=== PATIENT | male | born 1945 | race Caucasian/White ===

== ENCOUNTER 2017-01-13 11:20 | Emergency (ER) | payer OTHER ==
[2017-01-13 11:44] VITALS: PULSE 77; TEMP 97.7; BMI 35.6
--- NOTE | 2017-01-13 11:53 | PDOC ---
History of Present Illness - General Chief Complaint: Nasal Bleeding Stated Complaint: NOSE BLEED Time Seen by Provider: 01/13/17 11:35 - History of Present Illness Initial Comments: 01/13/17 11:50 71-year-old male with a past medical history of hypertension, hyperlipidemia, diabetes, nasal ALLERGIES He also has a past medical history of lymphoma, and he is in complete remission , and his last chemotherapy was 9 years ago He takes a regular aspirin daily for cardioprotection, and his last aspirin was 2 days ago Patient states that he does have forced air heat at home and is pretty dry in the house He states that on , he had some bleeding from his left nares, which resolved He started having some bleeding from his left nares again yesterday, and was seen at [facility], but was not cauterized or packed He states that 7:30 AM the bleeding started again, coming up the left nares, and some of it going down the back of his throat He states it started decreasing when he came towards the emergency department, but then as he was walking in to the emergency department it started bleeding heavily again He denies any other blood thinners, and has not taken his aspirin for 2 days He denies picking or blowing his nose, but he has been using his Flonase nasal inhaler recently He denies any recent URI He denies any other complaints at this time, and the remainder of the review of systems is negative Past History - Past Medical History Allergies/Adverse Reactions: Allergies Allergy/AdvReac Type Severity Reaction Status Date / Time Penicillins Allergy Hives Verified 01/13/17 11:38 Home Medications: Ambulatory Orders Aspirin [Aspirin EC] 325 mg PO DAILY 01/13/17 Carvedilol [Coreg -] 6.25 mg PO BID 01/13/17 Cider Vinegar [Apple Cider Vinegar] 1,000 mg PO BID 01/13/17 Clindamycin [Cleocin -] 300 mg PO TID #21 capsule 01/13/17 Fluticasone Propionate [Aller-Eliecer] 2 spr NS DAILY 01/13/17 Glyburide 10 mg PO BID 01/13/17 Lisinopril [Prinivil] 20 mg PO DAILY 01/13/17 Loratadine [Claritin -] 10 mg PO DAILY 01/13/17 Metformin HCl [Glucophage] 1,000 mg PO BID 01/13/17 Mometasone Furoate [Asmanex 220Mcg -] 1 inh IH DAILY 01/13/17 Rosuvastatin Calcium [Crestor] 10 mg PO DAILY 01/13/17 Sitagliptin Phosphate [Januvia] 50 mg PO BID 01/13/17 Anemia: No Asthma: No Cancer: Yes (hx of non hodgkins lymphoma) Cardiac Disorders: No CVA: No COPD: No CHF: No Dementia: No Diabetes: Yes (x10 yrs) GI Disorders: No Disorders: No HTN: Yes Hypercholesterolemia: Yes Liver Disease: No Seizures: No Thyroid Disease: No - Surgical History Abdominal Surgery: Yes (Right Inguinal Hernia Repair) Appendectomy: Yes Cardiac Surgery: No Cholecystectomy: No Lung Surgery: No Neurologic Surgery: No Orthopedic Surgery: Yes (Laminectomy,ORIF Right Ankle,Right Rotator Cuff Repair) - Psycho/Social/Smoking Cessation Hx Anxiety: No Suicidal Ideation: No Smoking History: Never smoked Have you smoked in the past 12 months: No Hx Alcohol Use: No Drug/Substance Use Hx: No Substance Use Type: None Hx Substance Use Treatment: No *Physical Exam - Vital Signs Last Vital Signs Temp Pulse Resp BP Pulse Ox 97.7 F 77 17 145/105 100 01/13/17 11:31 01/13/17 11:31 01/13/17 11:31 01/13/17 11:31 01/13/17 11:31 - Physical Exam Comments: 01/13/17 11:52 Physical exam Last Vital Signs Temp Pulse Resp BP Pulse Ox 97.7 F 77 17 145/105 100 01/13/17 11:31 01/13/17 11:31 01/13/17 11:31 01/13/17 11:31 01/13/17 11:31 Patient is alert and ambulatory and answering questions Head is normocephalic and atraumatic ENT- There is active epistaxis from the left nares The right naris appears benign There is a small amount of blood going down the back of the throat Mouth and oropharynx are otherwise benign Lungs clear Heart regular Medical Decision Making - Medical Decision Making 01/13/17 11:52 The nares were examined again with a nasal speculum The right nares is benign There is bleeding seen from the vicinity of the anterior septum Given this, cautery was performed with a silver nitrate stick on the anterior septum Will reevaluate 01/13/17 12:38 Patient reevaluated after cautery-bleeding completely stopped No active bleeding at this time, patient feeling much better Impression-epistaxis 01/13/17 14:34 Addendum- Patient returns with bleeding from left nares after straining at stool Anterior 4.5 cm rapid Rhino pack placed, with Neosporin, and balloon to 5 mL Will reevaluate 01/13/17 15:00 Initial packing soaked through Removed initial packing, and repacked with the second anterior 4.5 cm rapid Rhino pack with Neosporin and balloon to 5 mL 01/13/17 16:22 Patient observed, no further bleeding with left anterior rapid Rhino pack in place L nares We'll discharge with pack in place, and clindamycin Patient will need to see ENT tomorrow Patient is ALLERGIC to penicillin *DC/Admit/Observation/Transfer Diagnosis at time of Disposition: Epistaxis - Discharge Dispostion Disposition: HOME Condition at time of disposition: Improved - Prescriptions Prescriptions: Clindamycin [Cleocin -] 300 mg PO TID #21 capsule - Referrals Referrals: Jason Alba MD [Primary Care Provider] - Glenroy Dodd MD [Staff Physician] - Call tomorrow (ENT group - call tomorrow for appointment) - Patient Instructions Printed Discharge Instructions: Nosebleed, DI for Nosebleed Additional Instructions: Keep the packing in place Do not pick or blow your nose Please use your home humidifier Cold beverages only for the next 6-8 hours-nothing hot Please follow-up with ENT in the next 24-48 hours-call tomorrow morning for an appointment Followup with your primary care physician in 24-48 hours Return immediately if you worsen in any way Do not take your aspirin until seen by ENT
[2017-01-13 12:53] VITALS: BP 142/94
[2017-01-13] MEDS ORDERED: CLINDAMYCIN HCL 300 MG CAPSULE PO ONE (16:25)
[2017-01-13] MEDS ORDERED: CLINDAMYCIN HCL 150 MG CAPSULE (FP) ONE (16:31)
== END 2017-01-13 16:54 | disposition home or self-care (01) ==
LOC: FER 11:20
PROC: 2Y41X5Z Packing of Nasal Region using Packing Material (ICD-10-PCS; principal; 2017-01-13)
DX: R04.0 Epistaxis (principal); I10 Essential (primary) hypertension; E78.5 Hyperlipidemia, unspecified; E11.9 Type 2 diabetes mellitus without complications; Z79.82 Long term (current) use of aspirin; Z79.84 Long term (current) use of oral hypoglycemic drugs
CPT/HCPCS: 99282-25

== ENCOUNTER 2018-01-01 14:43 | Observation (INO) | payer OTHER ==
[2018-01-01 14:57] VITALS: BMI 36.2
[2018-01-01 15:29] LABS: BASO % 0.4 % (0-2.0); EOS % 2.5 % (0-4.5); HEMATOCRIT 49.1 % (35.4-49); HEMOGLOBIN 16.5 GM/dl (11.7-16.9); MCH 30.5 pg (25.7-33.7); MCHC 33.7 g/dl (32.0-35.9); MEAN CELL VOLUME 90.6 fl (80-96); MEAN PLT VOLUME 8.4 fl (7.5-11.1); MONO % 7.9 % (3.8-10.2); NEUT % 70.2 % (42.8-82.8); PLATELET COUNT 182 K/MM3 (134-434); RBC 5.42 M/mm3 (4.00-5.60); RDW 12.8 % (11.9-15.9); WHITE BLOOD COUNT 6.7 K/mm3 (4.0-10.8)
--- NOTE | 2018-01-01 15:46 | PDOC ---
History of Present Illness <Dhruv Shipley - Last Filed: 01/01/18 17:23> <Marcos Bowie - Last Filed: 01/04/18 18:09> - General Chief Complaint: Chest Pain Stated Complaint: CHEST PAIN SINCE LAST NIGHT Time Seen by Provider: 01/01/18 14:48 - History of Present Illness Initial Comments: 01/01/18 15:47 "The patient is a 72 year old male, accompanied by , with a significant past medical history of hypertension, hyperlipidemia, diabetes mellitus, non hodgkin's lymphoma (in remission), who presents to the emergency department with intermittent left sided non pleuritic chest pain for approx. one day. The patient reports sudden onset of mild left sided chest pain yesterday at 2pm that began while sitting at his desk and resolved on its own. The patient reports the chest pain returned a couple hours later while driving and then once again resolved on its own. The patient reports that when he woke up this morning he did not have the chest pain. However, at approx 11 am he had coffee and the left sided chest pain began so he decided to come to the ED for evaluation. The patient reports the pain as a dull ache. Denies SOB or diaphoresis. Denies radiation of pain to his back, jaw, or arm. Pt states that he is now completely pain-free. He denies any recent swelling or calf tenderness. He denies any recent fevers, chills, headache or dizziness. He denies any recent nausea, vomit, diarrhea or constipation. He denies any recent dysuria, frequency, urgency or hematuria. Allergies: Penicillins Past surgical history: Tonsils, Hernia, Appendectomy, Spinal stenosis. Family History: Paternal stroke at 55 Social History: Quit smoking 40 years ago. Primary Care Physician: Dr. Jason Alba (Marcos Bowie) Past History <Dhruv Shipley - Last Filed: 01/01/18 17:23> - Past Medical History Anemia: No Asthma: No Cancer: Yes (hx of non hodgkins lymphoma) Cardiac Disorders: No CVA: No COPD: No CHF: No Dementia: No Diabetes: Yes (x10 yrs) GI Disorders: No Disorders: No HTN: Yes Hypercholesterolemia: Yes Liver Disease: No Seizures: No Thyroid Disease: No - Surgical History Abdominal Surgery: Yes (Right Inguinal Hernia Repair) Appendectomy: Yes Cardiac Surgery: No Cholecystectomy: No Lung Surgery: No Neurologic Surgery: No Orthopedic Surgery: Yes (Laminectomy,ORIF Right Ankle,Right Rotator Cuff Repair) - Suicide/Smoking/Psychosocial Hx Smoking History: Never smoked Have you smoked in the past 12 months: No Information on smoking cessation initiated: No Hx Alcohol Use: No Drug/Substance Use Hx: No Substance Use Type: None Hx Substance Use Treatment: No <Marcos Bowie - Last Filed: 01/04/18 18:09> - Past Medical History Allergies/Adverse Reactions: Allergies Allergy/AdvReac Type Severity Reaction Status Date / Time Penicillins Allergy Mild Hives Verified 01/01/18 14:46 Home Medications: Ambulatory Orders Aspirin [Aspirin EC] 325 mg PO DAILY 01/13/17 Carvedilol [Coreg -] 6.25 mg PO BID 01/13/17 Lisinopril [Prinivil] 20 mg PO DAILY 01/13/17 Loratadine [Claritin -] 10 mg PO DAILY 01/13/17 Metformin HCl [Glucophage] 1,000 mg PO BID 01/13/17 Rosuvastatin Calcium [Crestor] 10 mg PO DAILY 01/13/17 Sitagliptin Phosphate [Januvia] 50 mg PO BID 01/13/17 Loratadine [Claritin] 1 tab PO DAILY 01/01/18 Magnesium Oxide [Mag-Oxide Magnesium] 400 mg PO BID #2 tablet 01/02/18 Cardiac Specific PMH - Complaint Specific PMHX Pacemaker: No <Marcos Bowie - Last Filed: 01/04/18 18:09> Review of Systems <Dhruv Shipley - Last Filed: 01/01/18 17:23> <Marcos Bowie - Last Filed: 01/04/18 18:09> - Review of Systems Comments:: 01/01/18 15:48 "GENERAL/CONSTITUTIONAL: No fever or chills. No weakness. HEAD, EYES, EARS, NOSE AND THROAT: No change in vision. No ear pain or discharge. No sore throat. CARDIOVASCULAR: +Chest pain. No shortness of breath. RESPIRATORY: No cough, wheezing, or hemoptysis. GASTROINTESTINAL: No nausea, vomiting, diarrhea or constipation. GENITOURINARY: No dysuria, frequency, or change in urination. MUSCULOSKELETAL: No joint or muscle swelling or pain. No neck or back pain. SKIN: No rash NEUROLOGIC: No headache, vertigo, loss of consciousness, or change in strength/ sensation. ENDOCRINE: No increased thirst. No abnormal weight change. HEMATOLOGIC/LYMPHATIC: No anemia, easy bleeding, or history of blood clots. ALLERGIC/IMMUNOLOGIC: No hives or skin allergy. " (Marcos Bowie) *Physical Exam <Dhruv Shipley - Last Filed: 01/01/18 17:23> <Marcos Bowie - Last Filed: 01/04/18 18:09> - Vital Signs Last Vital Signs Temp Pulse Resp BP Pulse Ox 97.6 F 69 18 118/78 95 01/02/18 04:44 01/02/18 04:44 01/02/18 04:44 01/02/18 04:44 01/02/18 05:49 - Physical Exam Comments: 01/01/18 15:41 "GENERAL: Awake, alert, and fully oriented, in no acute distress HEAD: No signs of trauma EYES: PERRLA, EOMI, sclera anicteric, conjunctiva clear ENT: Auricles normal inspection, hearing grossly normal, nares patent, oropharynx clear without exudates. Moist mucosa NECK: Nontender, no stepoffs, Normal ROM, supple, no lymphadenopathy, JVD, or masses LUNGS: Breath sounds equal, clear to auscultation bilaterally. No wheezes, and no crackles HEART: Regular rate and rhythm, normal S1 and S2, no murmurs, rubs or gallops ABDOMEN: Soft, nontender, normoactive bowel sounds. No guarding, no rebound. No masses EXTREMITIES: Normal range of motion, no edema. No clubbing or cyanosis. No cords, erythema, or tenderness NEUROLOGICAL: Cranial nerves II through XII intact. 5/5 strength and sensation in all extremities, Normal speech, normal gait SKIN: Warm, Dry, normal turgor, no rashes or lesions noted. " (Marcos Bowie) Heart Score/ECG Review <Dhruv Shipley - Last Filed: 01/01/18 17:23> - History History: Slightly suspicious - Electrocardiogram EKG: Normal - Age Age: >/= 65 - Risk Factors Risk Factors Heart Score: Yes Hx Hypercholesterolemia, Yes Hx Hypertension, Yes Hx Diabetes Based on the list above the patient has:: >/=3 risk factors or Hx atherosclerotic disease - Troponin Troponin: </= normal limit - Score Heart Score - Total: 4 <Ou,Marcos - Last Filed: 01/04/18 18:09> - ECG Impressions Comment:: 01/01/18 15:41 NSR, no ALEXANDER/STDs, no TWIs, Q waves in V1-V3, L axis deviation (Ou,Marcos) ED Treatment Course - LABORATORY CBC & Chemistry Diagram: 01/01/18 15:16 01/01/18 15:25 <Dhruv Shipley - Last Filed: 01/01/18 17:23> - LABORATORY CBC & Chemistry Diagram: 01/02/18 07:35 01/02/18 07:35 <Ou,Marcos - Last Filed: 01/04/18 18:09> - ADDITIONAL ORDERS Additional order review: 01/01/18 15:16 RBC 5.42 MCV 90.6 MCHC 33.7 RDW 12.8 MPV 8.4 Neutrophils % 70.2 Lymphocytes % 19.0 Monocytes % 7.9 Eosinophils % 2.5 Basophils % 0.4 - RADIOLOGY Radiology Studies Ordered: Category Date Time Status CHEST PA & LAT [RAD] Stat Radiology 01/01/18 15:16 Completed Radiograph Interpretation: 01/01/18 16:25 EXAM#: TYPE/EXAM: RESULT: [id number] RAD/CHEST PA LAT Chest pain. Chest x-ray, PA and lateral A frontal and 2 lateral views of the chest were submitted for evaluation Compared to prior CT scan of the chest dated 04/30/2015. The cardiac silhouette remains within normal limits in size with moderate unfolding of the aortic arch. There is a faint n nodular opacity in the left upper lobe measuring 11 mm. The rest of the lung is clear. Mediastinum and visualized osseous structures appear intact with moderate degenerative changes in the thoracic spine Impression Faint nodular opacity in the left upper lobe, measuring 11 mm seen on the frontal view only for which further evaluation with CT scan of the chest is recommended to evaluate for a pulmonary nodule. Reported By: Jina Middleton MD (Dhruv Shipley) - Medications Given in the ED: ED Medications Discontinued Medications Generic Name Dose Route Start Last Admin Trade Name Freq PRN Reason Stop Dose Admin Aspirin 325 mg 01/02/18 10:00 01/02/18 09:42 Ecotrin - PO 325 mg DAILY CASS Administration Carvedilol 6.25 mg 01/01/18 22:00 01/02/18 09:42 Coreg - PO 6.25 mg BID CASS Administration Insulin Aspart 1 vial 01/01/18 22:00 01/01/18 21:33 Novolog Vial Sliding Scale - SQ 6 units HS CASS Administration Protocol Insulin Aspart 1 vial 01/02/18 07:00 01/02/18 07:36 Novolog Vial Sliding Scale - SQ 4 units TIDAC CASS Administration Protocol Lisinopril 20 mg 01/02/18 10:00 01/02/18 09:42 Prinivil PO 20 mg DAILY CASS Administration Loratadine 10 mg 01/02/18 10:00 01/02/18 09:42 Claritin - PO 10 mg DAILY CASS Administration Magnesium Oxide 800 mg 01/02/18 10:14 01/02/18 12:00 Mag-Ox - PO 01/02/18 10:15 800 mg ONCE ONE Administration Sitagliptin Phosphate 50 mg 01/02/18 07:00 01/02/18 06:43 Januvia - PO 50 mg BIDAC CASS Administration Medical Decision Making <Dhruv Shipley - Last Filed: 01/01/18 17:23> <Marcos Bowie - Last Filed: 01/04/18 18:09> - Medical Decision Making 01/01/18 16:[address] call [address] for Dr. Jason Alba at 4:45 pm. Case discussed with Dr. Alba at 5:10 pm. (Dhruv Shipley) 01/01/18 15:45 72 M with intermittent atypical chest pain. EKG with no ischemic changes, making ACS unlikely. Pt with no evidence of volume overload on exam. No DVT/PE risk factors. - Labs, trop, BNP - CXR 01/01/18 18:23 Trop negative, CXR clear. Spoke with pt regarding nodule found on imaging, pt states he is aware of lung nodule. Spoke with Dr. Alba, who recommends tele obs admission. Pt admitted to hospitalist. Case discussed in detail with admitting physician including history, physical exam and ancillary studies. Admitting physician has assumed care for the patient and will follow all pending diagnostics and complete the evaluation and treatment. (Marcos Bowie) *DC/Admit/Observation/Transfer <Dhruv Shipley - Last Filed: 01/01/18 17:23> - Discharge Dispostion Admit: Yes <Marcos Bowie - Last Filed: 01/04/18 18:09> Diagnosis at time of Disposition: Chest pain - Discharge Dispostion Disposition: HOME Condition at time of disposition: Stable - Attestations Scribe Attestion: 01/01/18 15:54 Documentation prepared by Dhruv Shipley, acting as medical records clerk for Marcos Bowie MD. (Dhruv Shipley) Physician Attestion: 01/01/18 18:23 I, Dr. Marcos Bowie MD, attest that this document has been prepared under my direction and personally reviewed by me in its entirety. I further attest, that it accurately reflects all work, treatment, procedures and medical decision -making performed by me. (Marcos Bowie)
[2018-01-01 15:58] LABS: ALBUMIN 3.9 g/dl (3.5-5.0); ALK PHOS 79 U/L (32-92); ANION GAP 7 (8-16); BLOOD UREA NITROGEN 17 mg/dl (7-18); CALCIUM 9.2 mg/dl (8.4-10.2); CHLORIDE 98 mmol/L (98-107); CO2 26 mmol/L (22-28); CREATININE 0.7 mg/dl (0.6-1.3); GLUCOSE,RANDOM 296 mg/dl (74-106); POTASSIUM 3.9 mmol/L (3.5-5.1); SGOT/AST 18 U/L (10-42); SGPT/ALT 16 U/L (10-40); SODIUM 131 mmol/L (136-145); TOT PROT 6.5 g/dl (6.4-8.3)
[2018-01-01] MEDS: CARVEDILOL 6.25 MG TABLET (FP) PO SCH (21:25)
[2018-01-01] MEDS ORDERED: INSULIN SLIDING SCALE (NOVOLOG) 1 VIAL SQ SCH (22:00)
--- NOTE | 2018-01-02 00:49 | HP ---
CHIEF COMPLAINT: Chest pain PCP: Parth Cardiology: Yifan HISTORY OF PRESENT ILLNESS: This is a 72 year old male with a past medical history significant for HTN, HLD , DM who presented to the ED after multiple self resolving episodes of CP since yesterday. He states that he has had no further episodes CP in the past 10 hours and is feeling fine. He describes the pain as a dull ache with no radiation to shoulder, jaw or back. He denies associated SOB or palpitations. ER course was notable for: (1) troponin neg x 1 (2) Lasix given IVP Recent Travel: pt denies PAST MEDICAL HISTORY: HTN, HLD, DM, nonHodkins Lymphoma in remission PAST SURGICAL HISTORY: R inguinal hernia reapir lumbar laminectomy 5-6 years ago ORIF R ankle R rotator cuff repair Appendectomy tonsillectomy Social History: Smoking: Quit 1974, smoked 2ppd x 15 years Alcohol: pt denies Drugs: pt denies Family History: mother age 99, h/o CVA father age 51, [place] siblings alive and well children alive and well Allergies Penicillins Allergy (Mild, Verified 01/01/18 14:46) Hives HOME MEDICATIONS: 3 Medication Instructions Recorded Aspirin [Aspirin EC] 325 mg PO DAILY 01/13/17 Carvedilol [Coreg -] 6.25 mg PO BID 01/13/17 Lisinopril [Prinivil] 20 mg PO DAILY 01/13/17 Loratadine [Claritin -] 10 mg PO DAILY 01/13/17 Metformin HCl [Glucophage] 1,000 mg PO BID 01/13/17 Rosuvastatin Calcium [Crestor] 10 mg PO DAILY 01/13/17 Sitagliptin Phosphate [Januvia] 50 mg PO BID 01/13/17 Loratadine [Claritin] 1 tab PO DAILY 01/01/18 REVIEW OF SYSTEMS CONSTITUTIONAL: Absent: fever, chills, diaphoresis, generalized weakness, malaise, loss of appetite, weight change HEENT: Absent: rhinorrhea, nasal congestion, throat pain, throat swelling, difficulty swallowing, mouth swelling, ear pain, eye pain, visual changes CARDIOVASCULAR: present: chest pain Absent: syncope, palpitations, irregular heart rate, lightheadedness, peripheral edema RESPIRATORY: Absent: cough, shortness of breath, dyspnea with exertion, orthopnea, wheezing, stridor, hemoptysis GASTROINTESTINAL: Absent: abdominal pain, abdominal distension, nausea, vomiting, diarrhea, constipation, melena, hematochezia GENITOURINARY: Absent: dysuria, frequency, urgency, hesitancy, hematuria, flank pain, genital pain MUSCULOSKELETAL: Absent: myalgia, arthralgia, joint swelling, back pain, neck pain SKIN: Absent: rash, itching, pallor HEMATOLOGIC/IMMUNOLOGIC: Absent: easy bleeding, easy bruising, lymphadenopathy, frequent infections ENDOCRINE: Absent: unexplained weight gain, unexplained weight loss, heat intolerance, cold intolerance NEUROLOGIC: Absent: headache, focal weakness or paresthesias, dizziness, unsteady gait, seizure, mental status changes, bladder or bowel incontinence PSYCHIATRIC: Absent: anxiety, depression, suicidal or homicidal ideation, hallucinations. PHYSICAL EXAMINATION Vital Signs - 24 hr 3 01/01/18 01/01/18 01/01/18 14:45 15:54 16:24 Temperature 98.1 F Pulse Rate 81 Pulse Rate [ 77 Right Radial] Respiratory 20 20 Rate Blood Pressure 175/116 Blood Pressure 137/79 132/79 [Left Arm] O2 Sat by Pulse 100 Oximetry (%) 3 01/01/18 01/01/18 01/01/18 17:36 19:20 20:30 Temperature 97.7 F Pulse Rate 85 Pulse Rate [ 82 88 Right Radial] Respiratory 16 20 18 Rate Blood Pressure 128/82 Blood Pressure 122/84 129/81 [Left Arm] O2 Sat by Pulse 98 97 Oximetry (%) GENERAL: Awake, alert, and fully oriented, in no acute distress. HEAD: Normal with no signs of trauma. EYES: Pupils equal, round and reactive to light, extraocular movements intact, sclera anicteric, conjunctiva clear. No lid lag. EARS, NOSE, THROAT: Ears normal, nares patent, oropharynx clear without exudates. Moist mucous membranes. NECK: Normal range of motion, supple without lymphadenopathy, JVD, or masses. LUNGS: Breath sounds equal, clear to auscultation bilaterally. No wheezes. No accessory muscle use. + crackles left base HEART: Regular rate and rhythm, normal S1 and S2 without murmur, rub or gallop. ABDOMEN: Obese, Soft, nontender, not distended, normoactive bowel sounds, no guarding, no rebound, no masses. No hepatomegaly or splenomegaly. MUSCULOSKELETAL: Normal range of motion at all joints. No bony deformities or tenderness. No CVA tenderness. UPPER EXTREMITIES: 2+ pulses, warm, well-perfused. No cyanosis. No clubbing. No peripheral edema. LOWER EXTREMITIES: 2+ pulses, warm, well-perfused. No calf tenderness. No peripheral edema. NEUROLOGICAL: Cranial nerves II-XII intact. Normal speech. Normal gait. PSYCHIATRIC: Cooperative. Good eye contact. Appropriate mood and affect. SKIN: Warm, dry, normal turgor, no rashes or lesions noted, normal capillary refill. Laboratory Results - last 24 hr 3 01/01/18 01/01/18 01/01/18 01/01/18 01/01/18 15:16 15:25 15:25 19:04 21:28 WBC 6.7 RBC 5.42 Hgb 16.5 Hct 49.1 H MCV 90.6 MCH 30.5 MCHC 33.7 RDW 12.8 Plt Count 182 MPV 8.4 Neutrophils % 70.2 Lymphocytes % 19.0 Monocytes % 7.9 Eosinophils % 2.5 Basophils % 0.4 PT with INR INR PTT (Actin FS) Sodium 131 L Potassium 3.9 Chloride 98 Carbon Dioxide 26 Anion Gap 7 L BUN 17 Creatinine 0.7 Creat Clearance w eGFR > 60 POC Glucometer 365 Random Glucose 296 H Calcium 9.2 Total Bilirubin 1.0 AST 18 ALT 16 Alkaline Phosphatase 79 Creatine Kinase 65 Troponin I 0.03 0.03 B-Natriuretic Peptide 184.00 H Total Protein 6.5 Albumin 3.9 ECG Sinus rhythm with PACs vent rate 71, QTC 458 Left axis deviation no ALEXANDER/STDs, no TWIs, Q waves in V1-V3 Radiology Reports CXR PA/Lat Impression Faint nodular opacity in the left upper lobe, measuring 11 mm seen on the frontal view only for which further evaluation with CT scan of the chest is recommended to evaluate for a pulmonary nodule. Reported By: Jina Middleton MD 01/01/18 7229 ASSESSMENT/PLAN: 72yM with PMH HTN, HLD, DM, nHL presented to the ED s/p episodes CP. Chest pain - troponin neg x 2, trend x 1 more - pt has stress echo scheduled for end of Jan with his private drier and pulverizer tender - consider d/c home if trop neg for outpatient workup, would call cardiology in am Abnormal finding on CXR - ? lung nodule - outpatient CT, f/u with pulm/oncology HTN/HLD - cont home meds DM - hold glucophage while inpatient - cont januvia - BGM ac/hs with novolog sliding scale. DVT PPX - deferred as anticipated LOS <48h FEN - Tolerating po - BMP in am - low sodium diet as tolerated Dispo: Pt requires overnight observation on cardiac monitoring. Visit type - Emergency Visit Emergency Visit: Yes ED Registration Date: 01/01/18 Care time: The patient presented to the Emergency Department on the above date and was hospitalized for further evaluation of their emergent condition. - New Patient This patient is new to me today: Yes Date on this admission: 01/02/18 - Critical Care Critical Care patient: No
[2018-01-02 05:50] VITALS: BP 118/78; PULSE 69; TEMP 97.6
[2018-01-02] MEDS ORDERED: INSULIN SLIDING SCALE (NOVOLOG) 1 VIAL SQ SCH (07:00)
[2018-01-02] MEDS ORDERED: sitaGLIPtin PHOSPHATE 50 MG TABLET PO SCH (07:00)
[2018-01-02 08:40] LABS: ANION GAP 9 (8-16); BLOOD UREA NITROGEN 17 mg/dl (7-18); CALCIUM 8.9 mg/dl (8.4-10.2); CHLORIDE 96 mmol/L (98-107); CO2 28 mmol/L (22-28); CREATININE 0.9 mg/dl (0.6-1.3); MAGNESIUM 1.7 mg/dL (1.8-2.4); PHOSPHOROUS 3.5 mg/dl (2.5-4.6); SODIUM 133 mmol/L (136-145)
[2018-01-02 09:12] LABS: GLUCOSE,RANDOM 306 mg/dl (74-106)
[2018-01-02 09:22] LABS: BASO % 0.3 % (0-2.0); EOS % 2.6 % (0-4.5); HEMATOCRIT 50.8 % (35.4-49); LYMPH % 21.7 % (8-40); MCH 30.5 pg (25.7-33.7); MCHC 33.5 g/dl (32.0-35.9); MEAN PLT VOLUME 8.9 fl (7.5-11.1); MONO % 7.6 % (3.8-10.2); NEUT % 67.8 % (42.8-82.8); PLATELET COUNT 186 K/MM3 (134-434); RBC 5.58 M/mm3 (4.00-5.60); RDW 13.1 % (11.9-15.9); WHITE BLOOD COUNT 6.3 K/mm3 (4.0-10.8)
[2018-01-02] MEDS: CARVEDILOL 6.25 MG TABLET (FP) PO SCH (09:42)
[2018-01-02] MEDS ORDERED: ASPIRIN 325 MG ENTERIC COATED TABLET (FP) PO SCH (10:00)
[2018-01-02] MEDS ORDERED: LISINOPRIL 20 MG TABLET (FP) PO SCH (10:00)
[2018-01-02] MEDS ORDERED: LORATADINE 10 MG TABLET PO SCH (10:00)
[2018-01-02] MEDS ORDERED: MAGNESIUM OXIDE 400 MG TABLET (FP) PO ONE (10:14)
--- NOTE | 2018-01-02 11:00 | PN ---
Physical Exam: SUBJECTIVE: Patient seen and examined OBJECTIVE: Vital Signs Period Temp Pulse Resp BP Sys/Hernandez Pulse Ox Last 24 Hr 97.6 F-98.1 F 69-88 16-20 118-175/78-116 95-100 GENERAL: The patient is awake, alert, and fully oriented, in no acute distress. HEAD: Normal with no signs of trauma. EYES: PERRL, extraocular movements intact, sclera anicteric, conjunctiva clear. No ptosis. ENT: Ears normal, nares patent, oropharynx clear without exudates, moist mucous membranes. NECK: Trachea midline, full range of motion, supple. LUNGS: Breath sounds equal, clear to auscultation bilaterally, no wheezes, no crackles, no accessory muscle use. HEART: Regular rate and rhythm, S1, S2 without murmur, rub or gallop. ABDOMEN: Soft, nontender, nondistended, normoactive bowel sounds, no guarding, no rebound, no hepatosplenomegaly, no masses. EXTREMITIES: 2+ pulses, warm, well-perfused, no edema. NEUROLOGICAL: Cranial nerves II through XII grossly intact. Normal speech, gait not observed. PSYCH: Normal mood, normal affect. SKIN: Warm, dry, normal turgor, no rashes or lesions noted Laboratory Results - last 24 hr 01/01/18 01/01/18 01/01/18 15:16 15:25 15:25 WBC 6.7 RBC 5.42 Hgb 16.5 Hct 49.1 H MCV 90.6 MCH 30.5 MCHC 33.7 RDW 12.8 Plt Count 182 MPV 8.4 Neutrophils % 70.2 Lymphocytes % 19.0 Monocytes % 7.9 Eosinophils % 2.5 Basophils % 0.4 PT with INR INR PTT (Actin FS) Sodium 131 L Potassium 3.9 Chloride 98 Carbon Dioxide 26 Anion Gap 7 L BUN 17 Creatinine 0.7 Creat Clearance w eGFR > 60 POC Glucometer Random Glucose 296 H Calcium 9.2 Phosphorus Magnesium Total Bilirubin 1.0 AST 18 ALT 16 Alkaline Phosphatase 79 Creatine Kinase 65 Troponin I 0.03 B-Natriuretic Peptide Total Protein 6.5 Albumin 3.9 01/01/18 01/01/18 01/01/18 15:25 15:26 19:04 WBC RBC Hgb Hct MCV MCH MCHC RDW Plt Count MPV Neutrophils % Lymphocytes % Monocytes % Eosinophils % Basophils % PT with INR Cancelled INR Cancelled PTT (Actin FS) Cancelled Sodium Potassium Chloride Carbon Dioxide Anion Gap BUN Creatinine Creat Clearance w eGFR POC Glucometer Random Glucose Calcium Phosphorus Magnesium Total Bilirubin AST ALT Alkaline Phosphatase Creatine Kinase Troponin I 0.03 B-Natriuretic Peptide 184.00 H Total Protein Albumin 01/01/18 01/02/18 01/02/18 21:28 01:20 06:36 WBC RBC Hgb Hct MCV MCH MCHC RDW Plt Count MPV Neutrophils % Lymphocytes % Monocytes % Eosinophils % Basophils % PT with INR INR PTT (Actin FS) Sodium Potassium Chloride Carbon Dioxide Anion Gap BUN Creatinine Creat Clearance w eGFR POC Glucometer 365 297 Random Glucose Calcium Phosphorus Magnesium Total Bilirubin AST ALT Alkaline Phosphatase Creatine Kinase 45 Troponin I 0.03 B-Natriuretic Peptide Total Protein Albumin 01/02/18 01/02/18 07:35 07:35 WBC 6.3 RBC 5.58 Hgb 17.0 H Hct 50.8 H MCV 91.0 MCH 30.5 MCHC 33.5 RDW 13.1 Plt Count 186 MPV 8.9 Neutrophils % 67.8 Lymphocytes % 21.7 Monocytes % 7.6 Eosinophils % 2.6 Basophils % 0.3 PT with INR INR PTT (Actin FS) Sodium 133 L Potassium 4.0 Chloride 96 L Carbon Dioxide 28 Anion Gap 9 BUN 17 Creatinine 0.9 D Creat Clearance w eGFR POC Glucometer Random Glucose 306 H* Calcium 8.9 Phosphorus 3.5 Magnesium 1.7 L Total Bilirubin AST ALT Alkaline Phosphatase Creatine Kinase Troponin I B-Natriuretic Peptide Total Protein Albumin Active Medications Generic Name Dose Route Start Last Admin Trade Name Freq PRN Reason Stop Dose Admin Aspirin 325 mg 01/02/18 10:00 01/02/18 09:42 Ecotrin - PO 325 mg DAILY CASS Administration Carvedilol 6.25 mg 01/01/18 22:00 01/02/18 09:42 Coreg - PO 6.25 mg BID CASS Administration Insulin Aspart 1 vial 01/01/18 22:00 01/01/18 21:33 Novolog Vial Sliding Scale - SQ 6 units HS CASS Administration Protocol Insulin Aspart 1 vial 01/02/18 07:00 01/02/18 07:36 Novolog Vial Sliding Scale - SQ 4 units TIDAC CASS Administration Protocol Lisinopril 20 mg 01/02/18 10:00 02/01/18 09:42 Prinivil PO 20 mg DAILY CASS Administration Loratadine 10 mg 01/02/18 10:00 01/02/18 09:42 Claritin - PO 10 mg DAILY CASS Administration Rosuvastatin Calcium 10 mg 01/02/18 22:00 Crestor - PO HS CASS Sitagliptin Phosphate 50 mg 01/02/18 07:00 01/02/18 06:43 Januvia - PO 50 mg BIDAC CASS Administration ASSESSMENT/PLAN:
--- NOTE | 2018-01-02 11:00 | DS ---
Physical Exam: SUBJECTIVE: Patient seen and examined OBJECTIVE: Vital Signs Period Temp Pulse Resp BP Sys/Hernandez Pulse Ox Last 24 Hr 97.6 F-98.1 F 69-88 16-20 118-175/78-116 95-100 PHYSICAL EXAM GENERAL: The patient is awake, alert, and fully oriented, in no acute distress. HEAD: Normal with no signs of trauma. EYES: PERRL, extraocular movements intact, sclera anicteric, conjunctiva clear. ENT: Ears normal, nares patent, oropharynx clear without exudates, moist mucous membranes. NECK: Trachea midline, full range of motion, supple. LUNGS: Breath sounds equal, clear to auscultation bilaterally, no wheezes, no crackles, no accessory muscle use. HEART: Regular rate and rhythm, S1, S2 without murmur, rub or gallop. ABDOMEN: Soft, nontender, nondistended, normoactive bowel sounds, no guarding, no rebound, no hepatosplenomegaly, no masses. EXTREMITIES: 2+ pulses, warm, well-perfused, no edema. NEUROLOGICAL: Cranial nerves II through XII grossly intact. Normal speech, gait not observed. PSYCH: Normal mood, normal affect. SKIN: Warm, dry, normal turgor, no rashes or lesions noted. LABS Laboratory Results - last 24 hr 01/01/18 01/01/18 01/01/18 15:16 15:25 15:25 WBC 6.7 RBC 5.42 Hgb 16.5 Hct 49.1 H MCV 90.6 MCH 30.5 MCHC 33.7 RDW 12.8 Plt Count 182 MPV 8.4 Neutrophils % 70.2 Lymphocytes % 19.0 Monocytes % 7.9 Eosinophils % 2.5 Basophils % 0.4 PT with INR INR PTT (Actin FS) Sodium 131 L Potassium 3.9 Chloride 98 Carbon Dioxide 26 Anion Gap 7 L BUN 17 Creatinine 0.7 Creat Clearance w eGFR > 60 POC Glucometer Random Glucose 296 H Calcium 9.2 Phosphorus Magnesium Total Bilirubin 1.0 AST 18 ALT 16 Alkaline Phosphatase 79 Creatine Kinase 65 Troponin I 0.03 B-Natriuretic Peptide Total Protein 6.5 Albumin 3.9 01/01/18 01/01/18 01/01/18 15:25 15:26 19:04 WBC RBC Hgb Hct MCV MCH MCHC RDW Plt Count MPV Neutrophils % Lymphocytes % Monocytes % Eosinophils % Basophils % PT with INR Cancelled INR Cancelled PTT (Actin FS) Cancelled Sodium Potassium Chloride Carbon Dioxide Anion Gap BUN Creatinine Creat Clearance w eGFR POC Glucometer Random Glucose Calcium Phosphorus Magnesium Total Bilirubin AST ALT Alkaline Phosphatase Creatine Kinase Troponin I 0.03 B-Natriuretic Peptide 184.00 H Total Protein Albumin 01/01/18 01/02/18 01/02/18 21:28 01:20 06:36 WBC RBC Hgb Hct MCV MCH MCHC RDW Plt Count MPV Neutrophils % Lymphocytes % Monocytes % Eosinophils % Basophils % PT with INR INR PTT (Actin FS) Sodium Potassium Chloride Carbon Dioxide Anion Gap BUN Creatinine Creat Clearance w eGFR POC Glucometer 365 297 Random Glucose Calcium Phosphorus Magnesium Total Bilirubin AST ALT Alkaline Phosphatase Creatine Kinase 45 Troponin I 0.03 B-Natriuretic Peptide Total Protein Albumin 01/02/18 01/02/18 07:35 07:35 WBC 6.3 RBC 5.58 Hgb 17.0 H Hct 50.8 H MCV 91.0 MCH 30.5 MCHC 33.5 RDW 13.1 Plt Count 186 MPV 8.9 Neutrophils % 67.8 Lymphocytes % 21.7 Monocytes % 7.6 Eosinophils % 2.6 Basophils % 0.3 PT with INR INR PTT (Actin FS) Sodium 133 L Potassium 4.0 Chloride 96 L Carbon Dioxide 28 Anion Gap 9 BUN 17 Creatinine 0.9 D Creat Clearance w eGFR POC Glucometer Random Glucose 306 H* Calcium 8.9 Phosphorus 3.5 Magnesium 1.7 L Total Bilirubin AST ALT Alkaline Phosphatase Creatine Kinase Troponin I B-Natriuretic Peptide Total Protein Albumin HOSPITAL COURSE: Date of Admission:01/01/18 Date of Discharge: 01/02/18 Minutes to complete discharge: 37 Discharge Summary Reason For Visit: CHEST PAIN Current Active Problems Chest pain (Acute) Hospital Course: Initial Hospital Course: This 72 year old male with a past medical history significant for HTN, HLD, DM, non hodgkin's lymphoma (in remission) presented to the ED after 3 episodes of self resolving episodes of CP x1.5 days, pleuretic/pressure in nature. Since presenting to the ED he had no further episodes CP and feels well, he is unsure why or where it came from. He described the pain as a pressure, dull ache with no radiation to shoulder, jaw or back. He denied associated SOB or palpitations. Subsequent Hospital Course/Progress Note/DC summary: 1. Atypical CP - No further events since admission, non reproducible, no sob, palpitations - Trops x2 negative - Telemetry monitoring shows SN with PAC's and PVCs x2, already on coreg - ECHO - Spoke with cardiology office Dr. Saah he is aware of episode and will reschedule pt for echo stress sometime next week, pt is aware 2. Hypomagnesemia - Replete mg ox 800mg x1 now - Home with po 400mg BID x 2 days - PCP follow up Dispo: - home with above plan, pt aware and agrees - [phone] Condition: Stable - Instructions Diet, Activity, Other Instructions: Please return to the ED for any new, persistent, or worsening symptoms. Follow up with your PCP in 1 week Resume home medications as directed Follow up with [employer] Dr. Saha office next week, they will call you for moving ECHO/stress appt. Disposition: HOME - Home Medications Comprehensive Discharge Medication List: Ambulatory Orders Aspirin [Aspirin EC] 325 mg PO DAILY 01/13/17 Carvedilol [Coreg -] 6.25 mg PO BID 01/13/17 Lisinopril [Prinivil] 20 mg PO DAILY 01/13/17 Loratadine [Claritin -] 10 mg PO DAILY 01/13/17 Metformin HCl [Glucophage] 1,000 mg PO BID 01/13/17 Rosuvastatin Calcium [Crestor] 10 mg PO DAILY 01/13/17 Sitagliptin Phosphate [Januvia] 50 mg PO BID 01/13/17 Loratadine [Claritin] 1 tab PO DAILY 01/01/18 Magnesium Oxide [Mag-Oxide Magnesium] 400 mg PO BID #2 tablet 01/02/18
--- NOTE | 2018-01-02 15:00 | EKG ---
Test Reason : Blood Pressure : / mmHG Vent. Rate : 071 BPM Atrial Rate : 071 BPM P-R Int : 200 ms QRS Dur : 086 ms QT Int : 422 ms P-R-T Axes : 064 -63 -03 degrees QTc Int : 458 ms POOR DATA QUALITY, INTERPRETATION MAY BE ADVERSELY AFFECTED SINUS RHYTHM WITH PREMATURE ATRIAL COMPLEXES WITH ABERRANT CONDUCTION LEFT AXIS DEVIATION CANNOT RULE OUT SEPTAL INFARCT , AGE UNDETERMINED INFERIOR INFARCT , AGE UNDETERMINED ABNORMAL ECG NO PREVIOUS ECGS AVAILABLE Confirmed by LAQUITA RAMSEY MD ([id number] on 01/02/2018 3:00:42 PM Referred By: DAVID IQBAL Confirmed By:LAQUITA RAMSEY MD
[2018-01-02] MEDS ORDERED: ROSUVASTATIN CA 10 MG TABLET (FP) PO SCH (22:00)
== END 2018-01-02 13:11 | disposition home or self-care (01) ==
LOC: FER 14:43 → FM/S 18:33
PROVIDERS: ADMIT Internal Medicine; ATTEND Nurse Practitioner Acute Care
PROC: 3E013VG Introduction of Insulin into Subcutaneous Tissue, Percutaneous Approach (ICD-10-PCS; principal; 2018-01-01)
DX: R07.9 Chest pain, unspecified (principal); I10 Essential (primary) hypertension; E78.5 Hyperlipidemia, unspecified; E11.9 Type 2 diabetes mellitus without complications; E83.42 Hypomagnesemia; C85.90 Non-Hodgkin lymphoma, unspecified, unspecified site; R91.8 Other nonspecific abnormal finding of lung field; Z88.0 Allergy status to penicillin; Z79.82 Long term (current) use of aspirin; Z79.84 Long term (current) use of oral hypoglycemic drugs
CPT/HCPCS: 36415; 71046-TC-FY; 80048; 80053; 82550; 82962; 83735; 83880; 84100; 84484; 85025; 93005; 93306-TC; 96372; 99285-25; G0378

== ENCOUNTER 2018-02-13 21:01 | Inpatient (IN) | payer OTHER ==
[2018-02-13 21:06] VITALS: BMI 35.9
--- NOTE | 2018-02-13 21:31 | PDOC ---
History of Present Illness - General History Source: Patient Exam Limitations: No Limitations - History of Present Illness Initial Comments: 02/13/18 21:42 The patient is a 72 year old male with past medical history of hypertension, hyperlipidemia, and DM who presents to the ED with complaints of left hand weakness since 7:15 pm today. Patient reports he got home from work at 6 pm and took a nap. Upon waking up and eating dinner he noticed he was having difficulty holding his fork. At this time he noticed change in the way he was talking and chewing. He denies any associated numbness or tingling, denies any weakness in the rest of his LUE or other extremities. Denies any headache, LOC, changes in vision, any other focal neurological paresthesias. Denies any fevers or chills. PAST MEDICAL HISTORY: no significant history PAST SURGICAL HISTORY: no significant history FAMILY HISTORY: no pertinent history SOCIAL HISTORY: Pt lives with family and is employed. MEDICATIONS: reviewed ALLERGIES: As per nursing notes ROS General: No fevers or chills, no weakness, no weight loss HEENT: No change in vision. No sore throat,. No ear pain CardioVascular: No chest pain or shortness of breath Respiratory:No cough, or wheezing. Gastrointestinal: no nausea, vomiting, diarrhea or constipation, No rectal bleeding Genitourinary: No dysuria, hematuria, or frequency Musculoskeletal: No joint or muscle pain or swelling Neurologic: Weakness in left hand No headache, vertigo, dizziness or loss of consciousness Psychiatric: nor depression Skin: No rashes or easy bruising Endocrine: no increased thirst or abnormal weight change Allergic: no skin or latex allergy All other systems reviewed and normal General: Well-nourished well-developed individual, no acute distress HEENT: Throat: Normal, tonsils normal, no erythema or exudate Neck: Supple, no meningeal signs, no lymphadenopathy Eyes::Pupils equal reactive and round, extraocular motion intact Chest: Nontender to palpation Cardiac: II/ systolic ejection murmur. S1-S2 normal, regular rate and rhythm, no rubs or gallops Respiratory: Lungs clear to auscultation bilateral Abdomen: Soft, nondistended, normal bowel sounds, nontender to palpation diffusely Extremities: Warm, dry, no cyanosis, clubbing, or edema Skin: No rashes Neuro: See NIHSS. Measurable decreased in event promoter strength L vs R. Alert and oriented x3, nonfocal exam, grossly intact, normal gait Psych: Normal mood and affect <Nighat Pastrana - Last Filed: 02/13/18 21:42> - General History Source: Patient Exam Limitations: No Limitations - History of Present Illness Initial Comments: A portion of this note was documented by scribe services under my direction. I have reviewed the details of the note, within reason, and agree with the documentation. The case summary and management plan written by me. Medical decision making this is a 72-year-old male with history of risk factors for CVA. Patient comes in with 2 hours of isolated left hand weakness. Patient' s event promoter is weak however extension of his fingers appears to be fine. Otherwise there is no measurable neurological deficits. Patient's NIH stroke scale is 0. Will obtain workup including CBC, comp, EKG, chest x-ray, head CT Well reassessed and follow-up on workup Reassessment 2200 Patient's symptoms remain unchanged. There is been no decrease or increase in the left hand weakness. 02/13/18 22:57 Patient has been accepted for observation status by the hospitalist service. . Signout given to the admitting hospitalist, who accepts the patient. Discussed plan with the patient family at bedside, Patient and family aware of the plan and agree. Patient is clinically unchanged and stable. Timing/Duration: changing over time <Cong Cunningham I - Last Filed: 02/13/18 22:58> - General Chief Complaint: Weakness Stated Complaint: LT HAND WEAKNESS Time Seen by Provider: 02/13/18 21:07 Past History <Nighat Pastrana - Last Filed: 02/13/18 21:42> - Past Medical History Anemia: No Asthma: No Cancer: Yes (hx of non hodgkins lymphoma) Cardiac Disorders: No CVA: No COPD: No CHF: No Dementia: No Diabetes: Yes GI Disorders: No Disorders: No HTN: Yes Hypercholesterolemia: Yes Liver Disease: No Seizures: No Thyroid Disease: No - Surgical History Abdominal Surgery: Yes (Right Inguinal Hernia Repair) Appendectomy: Yes Cardiac Surgery: No Cholecystectomy: No Lung Surgery: No Neurologic Surgery: No Orthopedic Surgery: Yes (Laminectomy,ORIF Right Ankle,Right Rotator Cuff Repair) - Suicide/Smoking/Psychosocial Hx Smoking History: Never smoked Have you smoked in the past 12 months: No Hx Alcohol Use: No Drug/Substance Use Hx: No Substance Use Type: None Hx Substance Use Treatment: No <Cong Cunningham I - Last Filed: 02/13/18 22:58> - Past Medical History Allergies/Adverse Reactions: Allergies Allergy/AdvReac Type Severity Reaction Status Date / Time Penicillins Allergy Mild Hives Verified 01/01/18 14:46 Home Medications: Ambulatory Orders Aspirin [Aspirin EC] 325 mg PO DAILY 01/13/17 Carvedilol [Coreg -] 6.25 mg PO BID 01/13/17 Lisinopril [Prinivil] 20 mg PO DAILY 01/13/17 Metformin HCl [Glucophage] 1,000 mg PO BID 01/13/17 Rosuvastatin Calcium [Crestor] 10 mg PO DAILY 01/13/17 Sitagliptin Phosphate [Januvia] 100 mg PO DAILY 01/13/17 Loratadine [Claritin] 1 tab PO DAILY 01/01/18 Glucosam/Chondroit/C/Manganese [Cosamin Ds Capsule] 1 each PO BID 02/13/18 Magnesium Oxide [Mag-Oxide Magnesium] 400 mg PO Q2D 02/13/18 Multivit-Min/FA/Lycopen/Lutein [Centrum Silver Tablet] 1 each PO DAILY 02/13/18 *Physical Exam - Vital Signs Last Vital Signs Temp Pulse Resp BP Pulse Ox 98.2 F 89 18 152/91 98 02/13/18 21:02 02/13/18 21:02 02/13/18 21:02 02/13/18 21:31 02/13/18 21:02 <Nighat Pastrana - Last Filed: 02/13/18 21:42> - Vital Signs Last Vital Signs Temp Pulse Resp BP Pulse Ox 98.2 F 89 18 159/107 98 02/13/18 21:02 02/13/18 21:02 02/13/18 21:02 02/13/18 21:02 02/13/18 21:02 <Cong Cunningham I - Last Filed: 02/13/18 22:58> ED Treatment Course - LABORATORY CBC & Chemistry Diagram: 02/13/18 21:50 02/13/18 21:50 <Cong Cunningham I - Last Filed: 02/13/18 22:58> *DC/Admit/Observation/Transfer - Attestations Scribe Attestion: 02/13/18 21:44 Documentation prepared by Nighat Pastrana, acting as medical corps officer for Cong Cunningham MD. <Nighat Pastrana - Last Filed: 02/13/18 21:42> - Discharge Dispostion Admit: Yes <Cong Cunningham I - Last Filed: 02/13/18 22:58> Diagnosis at time of Disposition: Weakness of left hand - Discharge Dispostion Condition at time of disposition: Stable - Referrals Referrals: Jason Alba MD [Primary Care Provider] - - Patient Instructions - Post Discharge Activity
--- NOTE | 2018-02-13 21:40 | PDOC ---
NIH Stroke Scale - Last Known Well Date/Time & Onset Date Last Known Well: 02/13/18 Time Last Known Well: 19:00 - Initial Evaluation Level of consciousness: Alert Ask patient the month and their age: Answers both correctly Ask patient to open & close eyes; make fist and let go: Obeys both correctly Best gaze (horizontal eye movement): Normal Visual field testing: No visual field loss Facial paresis (Show teeth/raise eyebrows/close eyes tight): Normal symmetrical movement Motor Function: Left Arm: Normal Motor Function: Right Arm: Normal (extends arm 90 (or 45) degrees for 10 seconds without drift Motor Function: Left Leg: Normal (extends leg 30 degrees for 5 seconds without drift) Motor Function: Right Leg: Normal (extends leg 30 degrees for 5 seconds without drift) Limb Ataxia: No ataxia Sensory(Use pinprick test arms,legs,trunk,face/side to side): Normal Best language (Describe picture, name items, read sentences): No Aphasia Dysarthria (read several words): Normal articulation Extinction and Inattention: No abnormality - Total Score NIH Stroke Scale Score: 0
[2018-02-13 22:05] LABS: BASO % 0.8 % (0-2.0); EOS % 3.6 % (0-4.5); HEMATOCRIT 47.7 % (35.4-49); HEMOGLOBIN 16.5 GM/dl (11.7-16.9); LYMPH % 20.3 % (8-40); MCH 30.4 pg (25.7-33.7); MCHC 34.5 g/dl (32.0-35.9); MEAN CELL VOLUME 88.3 fl (80-96); MEAN PLT VOLUME 8.1 fl (7.5-11.1); MONO % 7.9 % (3.8-10.2); NEUT % 67.4 % (42.8-82.8); PLATELET COUNT 210 K/MM3 (134-434); RBC 5.41 M/mm3 (4.00-5.60); RDW 12.6 % (11.9-15.9); WHITE BLOOD COUNT 6.4 K/mm3 (4.0-10.8)
[2018-02-13 22:22] LABS: ALBUMIN 3.9 g/dl (3.5-5.0); ALK PHOS 90 U/L (32-92); ANION GAP 11 (8-16); BILIRUBIN,TOTAL 1.1 mg/dl (0.2-1.0); BLOOD UREA NITROGEN 18 mg/dl (7-18); CALCIUM 9.4 mg/dl (8.4-10.2); CHLORIDE 99 mmol/L (98-107); CO2 23 mmol/L (22-28); CREATININE 1.1 mg/dl (0.6-1.3); SGOT/AST 24 U/L (10-42); SGPT/ALT 15 U/L (10-40); SODIUM 133 mmol/L (136-145); TOT PROT 6.7 g/dl (6.4-8.3)
[2018-02-13 22:26] LABS: GLUCOSE,RANDOM 426 mg/dl (74-106)
[2018-02-13] MEDS ORDERED: INSULIN REGULAR HUMAN 100 UNITS/ML *VIAL SQ ONE (22:30)
[2018-02-13] MEDS ORDERED: INSULIN REGULAR HUMAN 100 UNITS/ML *VIAL ONE (22:41)
[2018-02-13] MEDS ORDERED: HEMOQUE TEST 1 EACH EACH ONE (23:46)
[2018-02-14] MEDS ORDERED: ASPIRIN 325 MG TABLET PO ONE (02:07)
--- NOTE | 2018-02-14 02:15 | HP ---
CHIEF COMPLAINT: left hand weakness PCP: Rubens Alba HISTORY OF PRESENT ILLNESS: This is a 72 year old male with a significant past medical history of HTN, HLD, DM who presented to the ED after noticing weakness to his left hand while eating. He also felt as if his speech and chewing was off. His left perioral area feels "funny" to him. ER course was notable for: (1) CT head no acute changes (2) sodium 133, glucose 426 Recent Travel: pt denies PAST MEDICAL HISTORY: HTN, HLD, DM, nonHodgkin's lymphoma, psoriasis PAST SURGICAL HISTORY: R inguinal hernia reapir lumbar laminectomy 5-6 years ago ORIF R ankle R rotator cuff repair Appendectomy tonsillectomy Social History: Smoking: Quit 1974, smoked 2ppd x 15 years Alcohol: pt denies Drugs: pt denies Family History: mother age 99, h/o CVA father age 51, [place] sister alive and well children alive and well Allergies Penicillins Allergy (Mild, Verified 01/01/18 14:46) Hives HOME MEDICATIONS: 3 Medication Instructions Recorded Aspirin [Aspirin EC] 325 mg PO DAILY 01/13/17 Carvedilol [Coreg -] 6.25 mg PO BID 01/13/17 Lisinopril [Prinivil] 20 mg PO DAILY 01/13/17 Metformin HCl [Glucophage] 1,000 mg PO BID 01/13/17 Rosuvastatin Calcium [Crestor] 10 mg PO DAILY 01/13/17 Sitagliptin Phosphate [Januvia] 100 mg PO DAILY 01/13/17 Loratadine [Claritin] 1 tab PO DAILY 01/01/18 Glucosam/Chondroit/C/Manganese 1 each PO BID 02/13/18 [Cosamin Ds Capsule] Magnesium Oxide [Mag-Oxide 400 mg PO Q2D 02/13/18 Magnesium] Multivit-Min/FA/Lycopen/Lutein 1 each PO DAILY 02/13/18 [Centrum Silver Tablet] REVIEW OF SYSTEMS CONSTITUTIONAL: Absent: fever, chills, diaphoresis, generalized weakness, malaise, loss of appetite, weight change HEENT: Absent: rhinorrhea, nasal congestion, throat pain, throat swelling, difficulty swallowing, mouth swelling, ear pain, eye pain, visual changes CARDIOVASCULAR: Absent: chest pain, syncope, palpitations, irregular heart rate, lightheadedness , peripheral edema RESPIRATORY: Absent: cough, shortness of breath, dyspnea with exertion, orthopnea, wheezing, stridor, hemoptysis GASTROINTESTINAL: Absent: abdominal pain, abdominal distension, nausea, vomiting, diarrhea, constipation, melena, hematochezia GENITOURINARY: Absent: dysuria, frequency, urgency, hesitancy, hematuria, flank pain, genital pain MUSCULOSKELETAL: Absent: myalgia, arthralgia, joint swelling, back pain, neck pain SKIN: Absent: rash, itching, pallor HEMATOLOGIC/IMMUNOLOGIC: Absent: easy bleeding, easy bruising, lymphadenopathy, frequent infections ENDOCRINE: Absent: unexplained weight gain, unexplained weight loss, heat intolerance, cold intolerance NEUROLOGIC: Present: focal weakness or paresthesias Absent: headache, dizziness, unsteady gait, seizure, mental status changes, bladder or bowel incontinence PSYCHIATRIC: Absent: anxiety, depression, suicidal or homicidal ideation, hallucinations. PHYSICAL EXAMINATION Vital Signs - 24 hr 3 02/13/18 02/13/18 02/14/18 21:02 21:31 01:00 Temperature 98.2 F 98.0 F Pulse Rate 89 85 Respiratory 18 17 Rate Blood Pressure 159/107 124/73 Blood Pressure 152/91 [Arm] O2 Sat by Pulse 98 96 Oximetry (%) GENERAL: Awake, alert, and fully oriented, in no acute distress. HEAD: Normal with no signs of trauma. EYES: Pupils equal, round and reactive to light, extraocular movements intact, sclera anicteric, conjunctiva clear. No lid lag. EARS, NOSE, THROAT: Ears normal, nares patent, oropharynx clear without exudates. Moist mucous membranes. very mild right facial droop noted NECK: Normal range of motion, supple without lymphadenopathy, JVD, or masses. LUNGS: Breath sounds equal, clear to auscultation bilaterally. No wheezes, and no crackles. No accessory muscle use. HEART: Regular rate and rhythm, normal S1 and S2 without murmur, rub or gallop. ABDOMEN: Soft, nontender, not distended, normoactive bowel sounds, no guarding, no rebound, no masses. No hepatomegaly or splenomegaly. MUSCULOSKELETAL: Normal range of motion at all joints. No bony deformities or tenderness. No CVA tenderness. UPPER EXTREMITIES: 2+ pulses, warm, well-perfused. No cyanosis. No clubbing. No peripheral edema. 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 LOWER EXTREMITIES: 2+ pulses, warm, well-perfused. No calf tenderness. No peripheral edema. muscle strength equal on both sides NEUROLOGICAL: Cranial nerves II-XII intact. Normal speech. Normal gait. PSYCHIATRIC: Cooperative. Good eye contact. Appropriate mood and affect. SKIN: Warm, dry, normal turgor, no rashes or lesions noted, normal capillary refill. Laboratory Results - last 24 hr 3 02/13/18 02/13/18 02/13/18 21:50 21:50 21:50 WBC 6.4 RBC 5.41 Hgb 16.5 Hct 47.7 MCV 88.3 MCH 30.4 MCHC 34.5 RDW 12.6 Plt Count 210 MPV 8.1 Neutrophils % 67.4 Lymphocytes % 20.3 Monocytes % 7.9 Eosinophils % 3.6 Basophils % 0.8 Sodium Potassium Chloride Carbon Dioxide Anion Gap BUN Creatinine Creat Clearance w eGFR POC Glucometer Random Glucose Calcium Total Bilirubin AST ALT Alkaline Phosphatase Creatine Kinase 56 Troponin I 0.03 Total Protein Albumin 3 02/13/18 02/13/18 21:50 23:51 WBC RBC Hgb Hct MCV MCH MCHC RDW Plt Count MPV Neutrophils % Lymphocytes % Monocytes % Eosinophils % Basophils % Sodium 133 L Potassium 4.0 Chloride 99 Carbon Dioxide 23 Anion Gap 11 BUN 18 Creatinine 1.1 D Creat Clearance w eGFR > 60 POC Glucometer [id number] Random Glucose 426 H* D Calcium 9.4 Total Bilirubin 1.1 H AST 24 D ALT 15 Alkaline Phosphatase 90 Creatine Kinase Troponin I Total Protein 6.7 Albumin 3.9 ECG Sinus rhythm with sinus arrhythmia L axis deviation incomplete RBBBno acute ST/T changes Radiology Reports CT head non contrast Impression: A 1.1 cm left occipital cortical infarct is seen which is probably chronic (versus subacute). Reported By: Elvin Harris MD 02/13/18 6619 ASSESSMENT/PLAN: 72yM with PMH HTN, HLD, DM, nHL, psoriasis presented to the ED with weakness to left hand and "funny" feeling to left side of face. Left hand weakness and facial parasthesia r/o CVA - pt reports no h/o prior CVA despite CT findings - pt already takes TUS213oz daily - neuro consult - MRI brain - cont home crestor 20mg HTN/HLD - cont home meds DM - cont home meds - sugar elevated in ED, given 10u regular, down to 210 now - BGM AC/HS with Novolog SS DVT PPX - heparin deferred given expected LOS <48h FEN - tolerating po - BMP in am - low sodium diet Dispo: pt currently requires further observation for management of his emergent condition. Visit type - Emergency Visit Emergency Visit: Yes ED Registration Date: 02/14/18 Care time: The patient presented to the Emergency Department on the above date and was hospitalized for further evaluation of their emergent condition. - New Patient This patient is new to me today: Yes Date on this admission: 02/14/18 - Critical Care Critical Care patient: No Hospitalist Screening - Colonoscopy Questionnaire Colonoscopy Questionnaire: Colonoscopy Questionnaire - Patient: 50 - 75 years old and never had a screening colonoscopy: Unknown History of colon or rectal polyps, or CA: No History of IBD, Crohn's disease or UC: No History of abdominal radiation therapy as a child: No - Relative: 1 with colon or rectal CA, or polyps at age 60 or younger: No Colon or rectal CA diagnosed at age 45 or younger: No Multiple relatives with colon or rectal CA: No - Outcome: Screening Result: Negative Screen
[2018-02-14] MEDS: metFORMIN HCL 500 MG TABLET (FP) PO SCH ×2 (06:45→17:28)
[2018-02-14] MEDS: sitaGLIPtin PHOSPHATE 50 MG TABLET PO SCH (06:47)
[2018-02-14] MEDS: INSULIN SLIDING SCALE (NOVOLOG) 1 VIAL SQ SCH ×3 (06:48→17:12)
[2018-02-14 08:47] LABS: BASO % 0.3 % (0-2.0); EOS % 3.3 % (0-4.5); HEMATOCRIT 44.9 % (35.4-49); HEMOGLOBIN 15.8 GM/dl (11.7-16.9); LYMPH % 20.3 % (8-40); MCH 30.8 pg (25.7-33.7); MCHC 35.2 g/dl (32.0-35.9); MEAN CELL VOLUME 87.6 fl (80-96); MEAN PLT VOLUME 8.4 fl (7.5-11.1); NEUT % 68.1 % (42.8-82.8); PLATELET COUNT 188 K/MM3 (134-434); RBC 5.12 M/mm3 (4.00-5.60); RDW 12.4 % (11.9-15.9); WHITE BLOOD COUNT 6.7 K/mm3 (4.0-10.8)
[2018-02-14 09:07] LABS: ANION GAP 9 (8-16); BLOOD UREA NITROGEN 22 mg/dl (7-18); CALCIUM 9.6 mg/dl (8.4-10.2); CHLORIDE 101 mmol/L (98-107); CO2 25 mmol/L (22-28); CREATININE 0.9 mg/dl (0.6-1.3); GLUCOSE,RANDOM 274 mg/dl (74-106); MAGNESIUM 1.5 mg/dL (1.8-2.4); PHOSPHOROUS 4.2 mg/dl (2.5-4.6); POTASSIUM 3.8 mmol/L (3.5-5.1); SODIUM 135 mmol/L (136-145)
[2018-02-14 09:13] LABS: CHOLESTEROL 128 mg/dl; HDL CHOLESTEROL 39 mg/dl (29-89); LDL CHOLESTEROL (ONLY DFH) 41 mg/dl; TRIGLYCERIDES 242 mg/dl (35-160)
[2018-02-14] MEDS ORDERED: GLUCOSAM PO SCH (10:00)
[2018-02-14] MEDS ORDERED: [UNRECOGNIZED DRUG - OTHER] PO SCH (10:00)
[2018-02-14] MEDS ORDERED: MAGNESIUM OXIDE 400 MG TABLET (FP) PO SCH (10:00)
[2018-02-14] MEDS ORDERED: MANGANESE PO SCH (10:00)
[2018-02-14] MEDS ORDERED: CHONDROIT PO SCH (10:00)
[2018-02-14] MEDS ORDERED: MAGNESIUM SULF 50% (8.12 MEQ/2 ML-1 GM VIAL) IVPB ONE (10:12)
--- NOTE | 2018-02-14 10:15 | CON.CARD ---
Consult Consult Specialty:: Cardiology Referred by:: Hospitalist Medicine Reason for Consultation:: TIA/CVA - History of Present Illness Chief Complaint: Left hand weakness History of Present Illness: This is a 72 year old male with a significant past medical history of HTN, HLD, DM who presented to the ED after noticing weakness and clumsiness to his left hand while eating. He also felt as if his speech and chewing was off. His left perioral area feels "funny" to him. He denies chest pain, dyspnea, palpitations , orthopnea, PND, LE edema or change in exercise capacity, left hand clumsiness persists. ER course was notable for: (1) CT head no acute changes (2) sodium 133, glucose 426 Recent Travel: pt denies PAST MEDICAL HISTORY: HTN, HLD, DM, nonHodgkin's lymphoma, psoriasis PAST SURGICAL HISTORY: R inguinal hernia reapir lumbar laminectomy 5-6 years ago ORIF R ankle R rotator cuff repair Appendectomy tonsillectomy Social History: Smoking: Quit 1974, smoked 2ppd x 15 years Alcohol: pt denies Drugs: pt denies Family History: mother age 99, h/o CVA father age 51, [place] sister alive and well children alive and well - History Source History Provided By: Patient Limitations to Obtaining History: No Limitations - Past Medical History Cardio/Vascular: Yes: HTN, Hyperlipdemia - Alcohol/Substance Use Hx Alcohol Use: No - Smoking History Smoking history: Never smoked Have you smoked in the past 12 months: No Home Medications - Allergies Allergies/Adverse Reactions: Allergies Allergy/AdvReac Type Severity Reaction Status Date / Time Penicillins Allergy Mild Hives Verified 01/01/18 14:46 - Home Medications Home Medications: Ambulatory Orders Aspirin [Aspirin EC] 325 mg PO DAILY 01/13/17 Carvedilol [Coreg -] 6.25 mg PO BID 01/13/17 Lisinopril [Prinivil] 20 mg PO DAILY 01/13/17 Metformin HCl [Glucophage] 1,000 mg PO BID 01/13/17 Rosuvastatin Calcium [Crestor] 10 mg PO DAILY 01/13/17 Sitagliptin Phosphate [Januvia] 100 mg PO DAILY 01/13/17 Loratadine [Claritin] 1 tab PO DAILY 01/01/18 Glucosam/Chondroit/C/Manganese [Cosamin Ds Capsule] 1 each PO BID 02/13/18 Magnesium Oxide [Mag-Oxide Magnesium] 400 mg PO Q2D 02/13/18 Multivit-Min/FA/Lycopen/Lutein [Centrum Silver Tablet] 1 each PO DAILY 02/13/18 Review of Systems - Review of Systems Neurological: reports: Numbness, Weakness Vital Signs: Vital Signs Temperature 97.7 F 02/14/18 08:32 Pulse Rate 77 02/14/18 08:32 Respiratory Rate 19 02/14/18 08:32 Blood Pressure 143/87 02/14/18 08:32 O2 Sat by Pulse Oximetry (%) 96 02/14/18 08:32 Constitutional: Yes: No Distress, Calm Neck: Yes: Supple Respiratory: Yes: Regular, CTA Bilaterally Gastrointestinal: Yes: Normal Bowel Sounds, Soft Cardiovascular: Yes: Regular Rate and Rhythm JVD: No Carotid Bruit: No Heart Sounds: Yes: S1, S2 Murmur: Yes: Systolic Murmur, Grade 1 Edema: No - Other Data Labs, Other Data: CBC, BMP 02/14/18 07:30 02/14/18 07:30 Troponin, BNP 02/13/18 21:50 Troponin I 0.03 Troponin, BNP 02/13/18 21:50 Troponin I 0.03 Sinus rhythm @ 81 L axis deviation, PAC no acute ST/T changes Tele: NSR PAC Echo: Report Reviewed Ejection Fraction %: LVEF > or = 40 % Imaging - Results Chest X-ray: Report Reviewed (NAD) Cat Scan: Report Reviewed (A 1.1 cm left occipital cortical infarct is seen which is probably chronic (versus subacute). Reported By: Elvin Harris MD 02/13/18 0745) Problem List - Problems (1) Hypertensive cardiomyopathy Code(s): I11.9 - HYPERTENSIVE HEART DISEASE WITHOUT HEART FAILURE; I43 - CARDIOMYOPATHY IN DISEASES CLASSIFIED ELSEWHERE Qualifiers: Heart failure presence: without heart failure Qualified Code(s): I11.9 - Hypertensive heart disease without heart failure; I43 - Cardiomyopathy in diseases classified elsewhere; I43 - Cardiomyopathy in diseases classified elsewhere; I43 - Cardiomyopathy in diseases classified elsewhere; I43 - Cardiomyopathy in diseases classified elsewhere (2) Hyperlipidemia associated with type 2 diabetes mellitus Code(s): E11.69 - TYPE 2 DIABETES MELLITUS WITH OTHER SPECIFIED COMPLICATION; E78.5 - HYPERLIPIDEMIA, UNSPECIFIED (3) Antiplatelet or antithrombotic long-term use Code(s): Z79.02 - CDL BULK DRIVER (CURRENT) USE OF ANTITHROMBOTICS/ANTIPLATELETS (4) Weakness of left hand Code(s): R29.898 - OTH SYMPTOMS AND SIGNS INVOLVING THE MUSCULOSKELETAL SYSTEM (5) Premature atrial contraction Code(s): I49.1 - ATRIAL PREMATURE DEPOLARIZATION Assessment/Plan 01/10/2018 Stress echo: Mild LAE, mod cLVH, normal LV fxn, tr AR negative submaximal stress echo 1. Left hand weakness and facial parasthesia r/o CVA/TIA 2. HTN/HCVD 3. Type 2 DM 4. Hyperlipidemia 5. PAC P:1. F/u brain MRI and carotid U/S, monitor and storage bin tender to r/o PAF 2. May benefit from longer term arrhythmia monitoring if telemetry unrevealing 3. Continue ASA 325 qd, carvedilol 6.25 bid, lisinopril 20 qd and Crestor 10 qd , consider switch to Aggrenox or add Plavix 4. F/u with Jerad Saha MD at [facility] upon d/c. Thank you for consultative opportunity
[2018-02-14] MEDS: LISINOPRIL 20 MG TABLET (FP) PO SCH (10:35)
[2018-02-14] MEDS: ROSUVASTATIN CA 10 MG TABLET (FP) PO SCH (10:35)
[2018-02-14] MEDS: LORATADINE 10 MG TABLET PO SCH (10:35)
[2018-02-14] MEDS: ASPIRIN 325 MG ENTERIC COATED TABLET (FP) PO SCH (10:35)
[2018-02-14] MEDS: MULTIVITAMINS THER W-MINERALS COMBO TABLET (FP) PO SCH (10:35)
[2018-02-14] MEDS: CARVEDILOL 6.25 MG TABLET (FP) PO SCH ×2 (10:35→21:11)
[2018-02-14] MEDS ORDERED: MAGNESIUM 1GM/D5W - 1 GM/100 ML IVPB IVPB ONE (10:45)
--- NOTE | 2018-02-14 10:56 | PN ---
Physical Exam: SUBJECTIVE: Patient seen and examined, denies any headache, blurred vision, patient denies any left sided paresthesia. OBJECTIVE: patient is a a 72 year old male with a significant past medical history of HTN, HLD, and DM, patient was admitted from the emergency department for acute cva. Vital Signs Period Temp Pulse Resp BP Sys/Hernandez Pulse Ox Last 24 Hr 97.7 F-98.2 F 77-89 17-19 124-159/73-107 96-98 GENERAL: The patient is awake, alert, and fully oriented, in no acute distress. HEAD: Normal with no signs of trauma. EYES: PERRL, extraocular movements intact, sclera anicteric, conjunctiva clear. No ptosis. ENT: Ears normal, nares patent, oropharynx clear without exudates, moist mucous membranes. NECK: Trachea midline, full range of motion, supple. LUNGS: Breath sounds equal, clear to auscultation bilaterally, no wheezes, no crackles, no accessory muscle use. HEART: Regular rate and rhythm, S1, S2 without murmur, rub or gallop. ABDOMEN: Soft, nontender, nondistended, normoactive bowel sounds, no guarding, no rebound, no hepatosplenomegaly, no masses. EXTREMITIES: 2+ pulses, warm, well-perfused, no edema. NEUROLOGICAL: Cranial nerves II through XII grossly intact. slight left sided facial droop, upper extremites 4/3, lower extremities 4/3, Normal speech, gait not observed. PSYCH: Normal mood, normal affect. SKIN: Warm, dry, normal turgor, no rashes or lesions noted Laboratory Results - last 24 hr 02/13/18 02/13/18 02/13/18 21:50 21:50 21:50 WBC 6.4 RBC 5.41 Hgb 16.5 Hct 47.7 MCV 88.3 MCH 30.4 MCHC 34.5 RDW 12.6 Plt Count 210 MPV 8.1 Neutrophils % 67.4 Lymphocytes % 20.3 Monocytes % 7.9 Eosinophils % 3.6 Basophils % 0.8 Sodium Potassium Chloride Carbon Dioxide Anion Gap BUN Creatinine Creat Clearance w eGFR POC Glucometer Random Glucose Calcium Phosphorus Magnesium Total Bilirubin AST ALT Alkaline Phosphatase Creatine Kinase 56 Troponin I 0.03 Total Protein Albumin Triglycerides Cholesterol Total LDL Cholesterol HDL Cholesterol 02/13/18 02/13/18 02/14/18 21:50 23:51 01:49 WBC RBC Hgb Hct MCV MCH MCHC RDW Plt Count MPV Neutrophils % Lymphocytes % Monocytes % Eosinophils % Basophils % Sodium 133 L Potassium 4.0 Chloride 99 Carbon Dioxide 23 Anion Gap 11 BUN 18 Creatinine 1.1 D Creat Clearance w eGFR > 60 POC Glucometer [id number] 210 Random Glucose 426 H* D Calcium 9.4 Phosphorus Magnesium Total Bilirubin 1.1 H AST 24 D ALT 15 Alkaline Phosphatase 90 Creatine Kinase Troponin I Total Protein 6.7 Albumin 3.9 Triglycerides Cholesterol Total LDL Cholesterol HDL Cholesterol 02/14/18 02/14/18 02/14/18 06:31 07:30 07:30 WBC 6.7 RBC 5.12 Hgb 15.8 Hct 44.9 MCV 87.6 MCH 30.8 MCHC 35.2 RDW 12.4 Plt Count 188 MPV 8.4 Neutrophils % 68.1 Lymphocytes % 20.3 Monocytes % 8.0 Eosinophils % 3.3 Basophils % 0.3 Sodium 135 L Potassium 3.8 Chloride 101 Carbon Dioxide 25 Anion Gap 9 BUN 22 H D Creatinine 0.9 Creat Clearance w eGFR POC Glucometer 237 Random Glucose 274 H D Calcium 9.6 Phosphorus 4.2 Magnesium 1.5 L Total Bilirubin AST ALT Alkaline Phosphatase Creatine Kinase Troponin I Total Protein Albumin Triglycerides Cholesterol Total LDL Cholesterol HDL Cholesterol 02/14/18 07:30 WBC RBC Hgb Hct MCV MCH MCHC RDW Plt Count MPV Neutrophils % Lymphocytes % Monocytes % Eosinophils % Basophils % Sodium Potassium Chloride Carbon Dioxide Anion Gap BUN Creatinine Creat Clearance w eGFR POC Glucometer Random Glucose Calcium Phosphorus Magnesium Total Bilirubin AST ALT Alkaline Phosphatase Creatine Kinase Troponin I Total Protein Albumin Triglycerides 242 H Cholesterol 128 Total LDL Cholesterol 41 HDL Cholesterol 39 Active Medications Generic Name Dose Route Start Last Admin Trade Name Freq PRN Reason Stop Dose Admin Aspirin 325 mg 02/14/18 10:00 02/14/18 10:35 Ecotrin - PO 325 mg DAILY CASS Administration Carvedilol 6.25 mg 02/14/18 10:00 02/14/18 10:35 Coreg - PO 6.25 mg BID CASS Administration Magnesium Sulfate/Dextrose 1 gm in 100 mls @ 100 mls/hr 02/14/18 10:45 Magnesium 1gm/D5w - IVPB 02/14/18 11:44 ONCE ONE Insulin Aspart 1 vial 02/14/18 22:00 Novolog Vial Sliding Scale - SQ HS CASS Protocol Insulin Aspart 1 vial 02/14/18 07:00 02/14/18 06:48 Novolog Vial Sliding Scale - SQ 3 units TIDAC CASS Administration Protocol Lisinopril 20 mg 02/14/18 10:00 02/14/18 10:35 Prinivil PO 20 mg DAILY CASS Administration Loratadine 10 mg 02/14/18 10:00 02/14/18 10:35 Claritin - PO 10 mg DAILY CASS Administration Magnesium Oxide 400 mg 02/14/18 10:00 02/14/18 10:35 Mag-Ox - PO 400 mg Q2D@1000 CASS Administration Metformin HCl 1,000 mg 02/14/18 07:00 02/14/18 06:45 Glucophage - PO 1,000 mg BIDAC CASS Administration Multivitamins/Minerals 1 each 02/14/18 10:00 02/14/18 10:35 Theragran-M PO 1 each DAILY CASS Administration Rosuvastatin Calcium 10 mg 02/14/18 10:00 02/14/18 10:35 Crestor - PO 10 mg DAILY CASS Administration Sitagliptin Phosphate 100 mg 02/14/18 07:00 02/14/18 06:47 Januvia - PO 100 mg DAILY@0700 CASS Administration IMAGING MRI of brain: acute nonhemmorhagic right frontal lobe infarct, small chronic left occiptal and superior right frontal lobe infarcts, moderate chronic microvascular ischemic changes with chronic lacunar infarct. carotid doppler: minimal atherosclerotic disease, no hemodynamic significant stenosis ASSESSMENT/PLAN: 1) neuro acute right frontal cva - mri of brain reviewed, discussed with Dr Coello, neurology, will evaluate patient today - continous cardiac monitoring, pt remains in nsr with pac's - will continue asa 325mg daily - continue crestor daily - appreciate neurology input 2) cardiovascular hypertension - obtained copy from pt's private laborer, Dr Saha, stress echo (01/10/18 ), LV function wnl, no segmental ischemic changes noted - continue lisinopril, b/p at goal - cardiology consulted and following. 3) endo DM - continue januvia and metformin with insulin sliding scale with novolog coverage - pending hgb a1c DVT PPX - heparin deferred given expected LOS <48h FEN - tolerating po - low sodium diet Dispo: pt currently requires further observation for management of his emergent condition. Visit type - Emergency Visit Emergency Visit: Yes ED Registration Date: 02/14/18 Care time: The patient presented to the Emergency Department on the above date and was hospitalized for further evaluation of their emergent condition. - New Patient This patient is new to me today: Yes Date on this admission: 02/14/18 - Critical Care Critical Care patient: No - Discharge Referral Referred to [facility] Med P.C.: No
[2018-02-14] MEDS ORDERED: MAGNESIUM SULFATE 1 GM in SODIUM CHLORIDE 100 ML IVPB ONE (11:30)
--- NOTE | 2018-02-14 15:04 | EKG ---
Test Reason : Blood Pressure : / mmHG Vent. Rate : 081 BPM Atrial Rate : 081 BPM P-R Int : 200 ms QRS Dur : 092 ms QT Int : 392 ms P-R-T Axes : 036 -70 038 degrees QTc Int : 455 ms SINUS RHYTHM WITH MARKED SINUS ARRHYTHMIA LEFT AXIS DEVIATION INCOMPLETE RIGHT BUNDLE BRANCH BLOCK INFERIOR INFARCT (CITED ON OR BEFORE 01-JAN-2018) ANTERIOR INFARCT (CITED ON OR BEFORE 01-JAN-2018) ABNORMAL ECG Confirmed by CYNTHIA HUDSON MD ([id number]) on 02/14/2018 3:04:33 PM Referred By: DR RECINOS Confirmed By:CYNTHIA HUDSON MD
--- NOTE | 2018-02-14 15:10 | CONSULT ---
Admitting History and Physical - Primary Care Physician PCP: Diane Miller - Admission History of Present Illness: patient is a a 72 year old male with a significant past medical history of HTN, HLD, and DM, patient was admitted from the emergency department for acute cva. Selected Entries 02/14/18 02/14/18 02/14/18 01:00 06:00 08:32 Breakfast Temperature 98.0 F 97.7 F 97.7 F 02/14/18 02/14/18 10:06 13:59 Breakfast 75% 100% Temperature 98.3 F Laboratory Tests 02/14/18 07:30 WBC 6.7 This is my first consult with this pt. Pt reports unable to make a fist with left hand yesterday. He is now able to but unable to spread fingers laterally. History Source: Patient, Family Member Limitations to Obtaining History: No Limitations - Past Medical History Cardiovascular: Yes: HTN, Hyperlipdemia - Smoking History Smoking history: Never smoked Have you smoked in the past 12 months: No - Alcohol/Substance Use Hx Alcohol Use: No History - Admission Reason For Visit: LT HAND WEAKNESS - Diagnostics CT Scan: Report Reviewed MRI: Report Reviewed (acute r frontal infarct) - General Mental Status: Alert and Oriented, Awake and Alert, Able to Follow Commands Attention: Intact Ability to Follow Directions: Excellent Head/Neck Control: WFL - Hearing Hearing: Functional Hearing: Normal Speech Evaluation - Communication Primary Language: TOGOLESE Communication: Yes: Dysarthria (slight) - Speech Production Able to Make Needs Known: Yes: WNL Intelligibility: Yes: WNL - Speech Characteristics Voice Loudness: Normal Voice Pitch: Yes: Normal Voice Phonatory-based Quality: Yes: Normal Speech Pattern: Normal Speech Clarity: < 100% Nasal Resonance: Normal Articulation: Yes: Imprecise (slight) - Language/Verbal Expression Able to Respond to Simple Queries: Yes: WNL Able to Communicate Wants and Needs: Yes: WNL Functional Communication Status: Yes: WNL - Memory/Perception terminal computer operator Memory: Yes: WNL Short Term Memory: Yes: WNL - Swallow Evaluation/Bedside Assessment Current Nutritional Intake: Regular, Thin Liquids Oral Secretions: Yes: WFL Dentition: Yes: Adequate Facial Symmetry at Rest: Facial Droop Left (slight) Facial Symmetry on Retraction: Symmetrical Facial Movement: Controlled Against Resistance Opening: Normal Against Resistance Closing: Normal Pucker Lips: Normal Smile: Normal Lingual Movement: Normal, Symmetric Lingual Speed of Movement: Normal Lingual Movement Strgth Against Opposition: Normal Lingual Movement Characteristics: Normal Velopharyngeal Movement: Normal Laryngeal Elevation: WFL Laryngeal Movement: Able to Palpate Rate of Intake: WFL Bolus Size: WFL Labial Seal: WFL Chewing: WFL Oral Prep Time: WFL A-P Transit: WFL Pocketing: None Timing of Swallow: WFL Coughing/Throat Clear: No (3 oz water test (-)) Change in Voice: No Recommendations - Speech Evaluation, Impression/Plan Impression: Acute CVA noted on MRI.Slight articultory precision with slight r facial at rest. Cognition, language, swallowing intact. Left hand improving. - Dysphagia Impressions/Plan Swallowing Skills: WF Dysphagia Impressions: No Impairment *Silent aspiration: cannot be R/O at bedside - Recommendations Diet Consistency: Regular Medication Administration: Whole with water Liquids: Thin Liquids
--- NOTE | 2018-02-14 15:37 | CON.NEURO ---
Consult Consult Specialty:: NEUROLOGY JEANNE UNDERWOOD - History of Present Illness Chief Complaint: Left hand clumsiness History of Present Illness: This is a 72 year old male with a significant past medical history of HTN, HLD, DM who presented to the ED after noticing weakness to his left hand while eating. He also felt as if his speech and chewing was off. His left perioral area feels "funny" to him. Reports had sudden onsetclumsiness left hand which persists than left facial "funny feeling" i.e diffisulty chewing from left side that is better. ER course was notable for: (1) CT head no acute changes (2) sodium 133, glucose 426 - Past Medical History Cardio/Vascular: Yes: HTN, Hyperlipdemia - Alcohol/Substance Use Hx Alcohol Use: No - Smoking History Smoking history: Never smoked Have you smoked in the past 12 months: No Home Medications - Allergies Allergies/Adverse Reactions: Allergies Allergy/AdvReac Type Severity Reaction Status Date / Time Penicillins Allergy Mild Hives Verified 01/01/18 14:46 - Home Medications Home Medications: Ambulatory Orders Aspirin [Aspirin EC] 325 mg PO DAILY 01/13/17 Carvedilol [Coreg -] 6.25 mg PO BID 01/13/17 Lisinopril [Prinivil] 20 mg PO DAILY 01/13/17 Metformin HCl [Glucophage] 1,000 mg PO BID 01/13/17 Rosuvastatin Calcium [Crestor] 10 mg PO DAILY 01/13/17 Sitagliptin Phosphate [Januvia] 100 mg PO DAILY 01/13/17 Loratadine [Claritin] 1 tab PO DAILY 01/01/18 Glucosam/Chondroit/C/Manganese [Cosamin Ds Capsule] 1 each PO BID 02/13/18 Magnesium Oxide [Mag-Oxide Magnesium] 400 mg PO Q2D 02/13/18 Multivit-Min/FA/Lycopen/Lutein [Centrum Silver Tablet] 1 each PO DAILY 02/13/18 Physical Exam-Neuro Vital Signs: Vital Signs Temperature 98.3 F 02/14/18 13:59 Pulse Rate 78 02/14/18 13:59 Respiratory Rate 20 02/14/18 13:59 Blood Pressure 130/78 02/14/18 13:59 O2 Sat by Pulse Oximetry (%) 96 02/14/18 08:32 Labs: CBC, BMP 02/14/18 07:30 02/14/18 07:30 - Neuro Exam Speech: WNL Dominant Hand: Right Mini Mental Exam: Normal Cranial Nerves II-XII Intact: No (Slight diminished left facial angle of mouth) DTR's: 1+ Left Bicep, 1+ Right Bicep, 1+ Left Tricep, 1+ Right Tricep, 1+ Left Brachioradialis, 1+ Right Brachioradialis, 1+ Left Achilles, 1+ Right Achilles Motor Strength: 5/5: Left Arm, Right Arm, Left Leg, Right Leg (+ diminished dexterity left hand and left IP is 5-/5) Imaging - Results MRI: Report Reviewed (MRI Brain-acute right frontal infarct prefrontal gyrus, small chronic left occipital and right frontal infarcts.) Other: Report Reviewed (Carotid Doppler-without sig. stenosis) Assessment/Plan Pt. with new right frontal/parietal infarct, patchy on DWI imaging, appears to be embolic given anatomic configuration. He has had infarcts bilaterally in the past-given cardiac risk factors/echo findings documented in chart cardioembolic disease is likely. Suggest: -D/C ASA -Start Aggrenox one tablet twice daily. He may be a candidate for a/c but not at this time, after w/u for arrhythmia/cardioembolic sources. -I suggest [facility] as an outpt.-to visualize aortic arch as a source of embolii. -Longer monitoring for arrhythmia as outpt. -D/W Dr. Sargent. Thank you, Clarence Dubon MD
[2018-02-14] MEDS ORDERED: INSULIN SLIDING SCALE (NOVOLOG) 1 VIAL SQ SCH (22:00)
[2018-02-15] MEDS: metFORMIN HCL 500 MG TABLET (FP) PO SCH (06:43)
[2018-02-15] MEDS: sitaGLIPtin PHOSPHATE 50 MG TABLET PO SCH (06:43)
[2018-02-15] MEDS: INSULIN SLIDING SCALE (NOVOLOG) 1 VIAL SQ SCH (06:44)
[2018-02-15 07:45] LABS: BASO % 1.5 % (0-2.0); EOS % 4.6 % (0-4.5); HEMATOCRIT 45.4 % (35.4-49); MCH 31.2 pg (25.7-33.7); MCHC 35.3 g/dl (32.0-35.9); MEAN CELL VOLUME 88.2 fl (80-96); MEAN PLT VOLUME 7.8 fl (7.5-11.1); MONO % 7.6 % (3.8-10.2); NEUT % 67.3 % (42.8-82.8); PLATELET COUNT 192 K/MM3 (134-434); RBC 5.15 M/mm3 (4.00-5.60); RDW 12.6 % (11.9-15.9); WHITE BLOOD COUNT 7.6 K/mm3 (4.0-10.8)
[2018-02-15 08:19] LABS: ALBUMIN 3.6 g/dl (3.5-5.0); ALK PHOS 82 U/L (32-92); ANION GAP 6 (8-16); BLOOD UREA NITROGEN 17 mg/dl (7-18); CHLORIDE 100 mmol/L (98-107); CO2 27 mmol/L (22-28); CREATININE 0.8 mg/dl (0.6-1.3); GLUCOSE,RANDOM 279 mg/dl (74-106); MAGNESIUM 1.3 mg/dL (1.8-2.4); PHOSPHOROUS 3.9 mg/dl (2.5-4.6); SGOT/AST 19 U/L (10-42); SGPT/ALT 14 U/L (10-40); SODIUM 133 mmol/L (136-145); TOT PROT 6.4 g/dl (6.4-8.3)
[2018-02-15] MEDS: LISINOPRIL 20 MG TABLET (FP) PO SCH (09:43)
[2018-02-15] MEDS: CARVEDILOL 6.25 MG TABLET (FP) PO SCH (09:43)
[2018-02-15] MEDS: ASPIRIN 325 MG ENTERIC COATED TABLET (FP) PO SCH (09:43)
[2018-02-15] MEDS: ROSUVASTATIN CA 10 MG TABLET (FP) PO SCH (09:43)
[2018-02-15] MEDS: MULTIVITAMINS THER W-MINERALS COMBO TABLET (FP) PO SCH (09:43)
[2018-02-15] MEDS: LORATADINE 10 MG TABLET PO SCH (09:43)
--- NOTE | 2018-02-15 09:43 | DS ---
Physical Exam: SUBJECTIVE: Patient seen and examined OBJECTIVE: Vital Signs Period Temp Pulse Resp BP Sys/Hernandez Pulse Ox Last 24 Hr 97.5 F-98.3 F 70-78 16-96 130-133/73-78 95-97 PHYSICAL EXAM GENERAL: The patient is awake, alert, and fully oriented, in no acute distress. HEAD: Normal with no signs of trauma. EYES: PERRL, extraocular movements intact, sclera anicteric, conjunctiva clear. ENT: Ears normal, nares patent, oropharynx clear without exudates, moist mucous membranes. NECK: Trachea midline, full range of motion, supple. LUNGS: Breath sounds equal, clear to auscultation bilaterally, no wheezes, no crackles, no accessory muscle use. HEART: Regular rate and rhythm, S1, S2 without murmur, rub or gallop. ABDOMEN: Soft, nontender, nondistended, normoactive bowel sounds, no guarding, no rebound, no hepatosplenomegaly, no masses. EXTREMITIES: 2+ pulses, warm, well-perfused, no edema. NEUROLOGICAL: Cranial nerves II through XII grossly intact. Normal speech, gait not observed. PSYCH: Normal mood, normal affect. SKIN: Warm, dry, normal turgor, no rashes or lesions noted. LABS Laboratory Results - last 24 hr 02/14/18 02/14/18 02/14/18 07:30 11:23 16:37 WBC RBC Hgb Hct MCV MCH MCHC RDW Plt Count MPV Neutrophils % Lymphocytes % Monocytes % Eosinophils % Basophils % Sodium Potassium Chloride Carbon Dioxide Anion Gap BUN Creatinine Creat Clearance w eGFR POC Glucometer 288 254 Random Glucose Hemoglobin A1c % 11.0 H Calcium Phosphorus Magnesium Total Bilirubin AST ALT Alkaline Phosphatase Total Protein Albumin 02/14/18 02/15/18 02/15/18 20:48 06:34 07:35 WBC 7.6 RBC 5.15 Hgb 16.0 Hct 45.4 MCV 88.2 MCH 31.2 MCHC 35.3 RDW 12.6 Plt Count 192 MPV 7.8 Neutrophils % 67.3 Lymphocytes % 19.0 Monocytes % 7.6 Eosinophils % 4.6 H Basophils % 1.5 D Sodium Potassium Chloride Carbon Dioxide Anion Gap BUN Creatinine Creat Clearance w eGFR POC Glucometer 261 269 Random Glucose Hemoglobin A1c % Calcium Phosphorus Magnesium Total Bilirubin AST ALT Alkaline Phosphatase Total Protein Albumin 02/15/18 07:35 WBC RBC Hgb Hct MCV MCH MCHC RDW Plt Count MPV Neutrophils % Lymphocytes % Monocytes % Eosinophils % Basophils % Sodium 133 L Potassium 4.0 Chloride 100 Carbon Dioxide 27 Anion Gap 6 L BUN 17 D Creatinine 0.8 Creat Clearance w eGFR > 60 POC Glucometer Random Glucose 279 H Hemoglobin A1c % Calcium 9.0 Phosphorus 3.9 Magnesium 1.3 L Total Bilirubin 1.0 AST 19 D ALT 14 Alkaline Phosphatase 82 Total Protein 6.4 Albumin 3.6 HOSPITAL COURSE: Date of Admission:02/14/18 Date of Discharge: 02/15/18 01/10/2018 Stress echo: Mild LAE, mod cLVH, normal LV fxn, tr AR negative submaximal stress echo 1. Left hand weakness and facial parasthesia r/o CVA/TIA 2. HTN/HCVD 3. Type 2 DM 4. Hyperlipidemia 5. PAC P:1. 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 May benefit from longer term arrhythmia monitoring if telemetry unrevealing 3. Continue ASA 325 qd, carvedilol 6.25 bid, lisinopril 20 qd and Crestor 10 qd , consider switch to Aggrenox or add Plavix 4. F/u with Jerad Saha MD at [facility] upon d/c. Thank you for consultative opportunity Minutes to complete discharge: 35 Discharge Summary Reason For Visit: LT HAND WEAKNESS Current Active Problems Antiplatelet or antithrombotic long-term use (Acute) Hyperlipidemia associated with type 2 diabetes mellitus (Acute) Hypertensive cardiomyopathy (Acute) Premature atrial contraction (Acute) Weakness of left hand (Acute) Condition: Improved - Instructions Referrals: Jason Alba MD [Primary Care Provider] - Disposition: HOME - Home Medications Comprehensive Discharge Medication List: Ambulatory Orders Aspirin [Aspirin EC] 325 mg PO DAILY 01/13/17 Carvedilol [Coreg -] 6.25 mg PO BID 01/13/17 Lisinopril [Prinivil] 20 mg PO DAILY 01/13/17 Metformin HCl [Glucophage] 1,000 mg PO BID 01/13/17 Rosuvastatin Calcium [Crestor] 10 mg PO DAILY 01/13/17 Sitagliptin Phosphate [Januvia] 100 mg PO DAILY 01/13/17 Loratadine [Claritin] 1 tab PO DAILY 01/01/18 Glucosam/Chondroit/C/Manganese [Cosamin Ds Capsule] 1 each PO BID 02/13/18 Magnesium Oxide [Mag-Oxide Magnesium] 400 mg PO Q2D 02/13/18 Multivit-Min/FA/Lycopen/Lutein [Centrum Silver Tablet] 1 each PO DAILY 02/13/18 This patient is new to me today: Yes Date on this admission: 02/15/18 Emergency Visit: Yes ED Registration Date: 02/14/18 Care time: The patient presented to the Emergency Department on the above date and was hospitalized for further evaluation of their emergent condition. Critical Care patient: No - Discharge Referral Referred to [facility] Med P.C.: No
[2018-02-15] MEDS ORDERED: ASPIRIN/DIPYRIDAMOLE 25 MG/200 MG CAPSULE (FP) PO SCH (10:00)
--- NOTE | 2018-02-15 10:38 | PN ---
Progress Note, Physician History of Present Illness: Left hand clumsiness and weakness slowly resolving. - Current Medication List Current Medications: Active Medications Carvedilol (Coreg -) 6.25 mg PO BID [facility] Last Admin: 02/15/18 09:43 Dose: 6.25 mg Dipyridamole/Aspirin (Aggrenox -) 1 combo PO BID [facility] Insulin Aspart (Novolog Vial Sliding Scale -) 1 vial SQ HS [facility] PRN Reason: Protocol Last Admin: 02/14/18 21:12 Dose: 3 units Insulin Aspart (Novolog Vial Sliding Scale -) 1 vial SQ [facility] PRN Reason: Protocol Last Admin: 02/15/18 06:44 Dose: 4 units Lisinopril (Prinivil) 20 mg PO DAILY [facility] Last Admin: 02/15/18 09:43 Dose: 20 mg Loratadine (Claritin -) 10 mg PO DAILY [facility] Last Admin: 02/15/18 09:43 Dose: 10 mg Magnesium Oxide (Mag-Ox -) 400 mg PO Q2D@1000 [facility] Last Admin: 02/14/18 10:35 Dose: 400 mg Multivitamins/Minerals (Theragran-M) 1 each PO DAILY [facility] Last Admin: 02/15/18 09:43 Dose: 1 each Rosuvastatin Calcium (Crestor -) 10 mg PO DAILY [facility] Last Admin: 02/15/18 09:43 Dose: 10 mg - Objective Vital Signs: Vital Signs Temperature 97.5 F L 02/15/18 06:00 Pulse Rate 73 02/15/18 06:00 Respiratory Rate 96 H 02/15/18 08:00 Blood Pressure 133/73 02/15/18 06:00 O2 Sat by Pulse Oximetry (%) 97 02/15/18 08:00 Constitutional: Yes: No Distress, Calm Neck: Yes: Supple Cardiovascular: Yes: Regular Rate and Rhythm Respiratory: Yes: Regular, CTA Bilaterally Gastrointestinal: Yes: Normal Bowel Sounds, Soft Edema: No Labs: CBC, BMP 02/15/18 07:35 02/15/18 07:35 - ....Imaging Ultrasound: Report Reviewed (No sig carotid stenosis) MRI: Report Reviewed (Acute nonhemorrhagic right frontal stroke, small chronic left occipital and superior right frontal infarcts, chronic lacunar strokes) EKG: Report Reviewed (Tele: No PAF) Problem List - Problems (1) Hypertensive cardiomyopathy Code(s): I11.9 - HYPERTENSIVE HEART DISEASE WITHOUT HEART FAILURE; I43 - CARDIOMYOPATHY IN DISEASES CLASSIFIED ELSEWHERE Qualifiers: Heart failure presence: without heart failure Qualified Code(s): I11.9 - Hypertensive heart disease without heart failure; I43 - Cardiomyopathy in diseases classified elsewhere; I43 - Cardiomyopathy in diseases classified elsewhere; I43 - Cardiomyopathy in diseases classified elsewhere; I43 - Cardiomyopathy in diseases classified elsewhere (2) Hyperlipidemia associated with type 2 diabetes mellitus Code(s): E11.69 - TYPE 2 DIABETES MELLITUS WITH OTHER SPECIFIED COMPLICATION; E78.5 - HYPERLIPIDEMIA, UNSPECIFIED (3) Antiplatelet or antithrombotic long-term use Code(s): Z79.02 - CORRECTION (CURRENT) USE OF ANTITHROMBOTICS/ANTIPLATELETS (4) Weakness of left hand Code(s): R29.898 - OTH SYMPTOMS AND SIGNS INVOLVING THE MUSCULOSKELETAL SYSTEM (5) Premature atrial contraction Code(s): I49.1 - ATRIAL PREMATURE DEPOLARIZATION Assessment/Plan 01/10/2018 Stress echo: Mild LAE, mod cLVH, normal LV fxn, tr AR negative submaximal stress echo 1. Left hand weakness and facial parasthesia referable to acute right frontal stroke r/o cardioembolic etiology 2. HTN/HCVD 3. Type 2 DM 4. Hyperlipidemia 5. 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 May benefit from longer term arrhythmia monitoring as telemetry unrevealing, [facility] as an outpt.-to visualize aortic arch as a source of emboli 3. Continue ASA 325 qd, carvedilol 6.25 bid, lisinopril 20 qd and Crestor 10 qd , agree with switch to Aggrenox bid 4. F/u with Jerad Saha MD at [facility] upon d/c for above studies, discussed with patient
[2018-02-15 11:50] VITALS: BP 128/74; PULSE 70; TEMP 98.6
== END 2018-02-15 11:51 | disposition home or self-care (01) | DRG 65 ==
LOC: FER 21:01 → FM/S 22:52 → UNDOADMOB 02-14 00:21 → OBSVTOIN 02-14 11:48
PROVIDERS: ADMIT Internal Medicine; ATTEND Nurse Practitioner Acute Care
DX: I63.40 Cerebral infarction due to embolism of unspecified cerebral artery (principal); I43 Cardiomyopathy in diseases classified elsewhere; E78.5 Hyperlipidemia, unspecified; E11.9 Type 2 diabetes mellitus without complications; L40.8 Other psoriasis; I49.1 Atrial premature depolarization; R29.898 Other symptoms and signs involving the musculoskeletal system; Z85.72 Personal history of non-Hodgkin lymphomas; Z87.891 Personal history of nicotine dependence; Z88.0 Allergy status to penicillin; Z79.02 Long term (current) use of antithrombotics/antiplatelets; I11.9 Hypertensive heart disease without heart failure
CPT/HCPCS: 36415; 70450-TC; 70551-TC; 71045-TC-FY; 80048; 80053; 80061; 82550; 82962; 83036; 83735; 84100; 84484; 85025; 93005; 93880-TC; 97116-GP; 97161-GP; 99282-25; G0378